=== PATIENT | female | born 1945 | race Caucasian/White ===

== ENCOUNTER 2017-03-10 07:20 | Inpatient (IN) | payer BC, MEDICARE ==
--- NOTE | 2017-03-02 23:27 | HP ---
HOSPITAL COURSE: DATE OF ADMISSION/SURGERY: 03/10/17 SURGEON: Kate Kemp MD * (DICTATED BY WILY LOGAN) PROCEDURE: Left total knee arthroplasty. CHIEF COMPLAINT: Left knee pain. HISTORY OF PRESENT ILLNESS: Ms. Tatum is a 71-year-old female with complaints of left knee pain secondary to advanced osteoarthritis. She has failed conservative management and has elected to proceed with a left total knee arthroplasty, which is scheduled for 03/10/[address] Kemp. PAST MEDICAL HISTORY: 1. Hypertension. 2. High cholesterol. 3. Varicose veins. 4. History of thrombophlebitis. 5. Anxiety. 6. Liver cancer. 7. Thoracic aneurysm. PAST SURGICAL HISTORY: 1. Tonsillectomy. 2. Adenoidectomy. 3. Cholecystectomy. 4. Tubal ligation. 5. Vein ligation. 6. [place] teeth extraction. 7. Appendectomy. CURRENT MEDICATIONS: 1. Celebrex. 2. Bystolic 5 mg once a day. 3. Valsartan/hydrochlorothiazide 320/12.5 once a day. 4. Simvastatin 20 mg once a day. 5. Alprazolam 0.25 mg twice a day as needed. 6. Coumadin 2 mg 2 tablets once daily. 7. Osteo Bi-Flex. ALLERGIES: None. FAMILY HISTORY: Heart disease and hypertension. SOCIAL HISTORY: A 71-year-old female, she lives with her niece. She does not smoke, use drugs or alcohol. REVIEW OF SYSTEMS: A complete 14-point review of systems was reviewed with the patient. 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 PHYSICAL EXAMINATION GENERAL: She is well developed, well nourished, in no acute distress. VITAL SIGNS: She stands 5 feet 4 inches tall, weighs 193 pounds. Her blood pressure is 140/92, heart rate 74. HEENT: Normocephalic, atraumatic. NECK: Supple. No palpable lymph nodes. PULMONARY: Lungs are clear to auscultation bilaterally. CARDIO: Regular rate and rhythm. Strong S1, S2. ABDOMEN: Soft, nontender, nondistended. NEUROLOGICAL: She is alert and oriented x3. Cranial nerves II through XII are intact. MUSCULOSKELETAL: Left lower extremity, the skin is intact. There are no open wounds or abrasions. She has a moderate joint effusion, 15 to 110 degrees flexion, tenderness over the medial joint line and MCL. Negative Marisa. 5/5 lower extremity strength. 2+ dorsalis pedis pulses and intact sensation. ASSESSMENT AND PLAN: Ms. Tatum is a 71-year-old female with complaints of left knee pain secondary to advanced osteoarthritis. She has failed conservative management and has elected to proceed with a left total knee arthroplasty, which is scheduled for 03/10/[address] Kemp discussed the risks and benefits of the surgery at today's visit and all of her questions were answered. Percocet and Colace were sent to her pharmacy today for postoperative pain control and she has a prescription for Coumadin currently. She will follow with Dr. Kemp 2 weeks after the surgery. WILY LOGAN [id number]/[facility] #: [id number] MTDD
[~2017-03-10 07:20] MED LIST: Buffered Lidocaine 0.9% SYRIN* 5 ML/SYR SYRINGE INTRADERM ONE; Famotidine IV* 10 MG/ML 2 ML (20 mg) IV ONE; Gabapentin CAP(*) 300 MG PO ONE
[2017-03-10] MEDS ORDERED: fentaNYL* 50 MCG/ML 2 ML VIAL (100 MCG VIAL) ONE (08:28)
[2017-03-10] MEDS ORDERED: Midazolam* 1 MG/ML 5 ML VIAL (5 MG) ONE (08:28)
[2017-03-10] MEDS ORDERED: Buffered Lidocaine 0.9% SYRIN* 5 ML/SYR SYRINGE ONE (08:45)
[2017-03-10] MEDS ORDERED: Gabapentin CAP(*) 300 MG ONE (09:15)
[2017-03-10] MEDS ORDERED: Famotidine IV* 10 MG/ML 2 ML (20 mg) ONE (09:15)
[2017-03-10] MEDS ORDERED: Bupivacaine 0.5% W/EPI SDV* 10 ML VIAL INJ ONE (09:45)
[2017-03-10] MEDS ORDERED: Morphine PF AMP (0.5MG/ML)* 5 MG/10 ML AMP ONE (09:57)
[2017-03-10] MEDS ORDERED: KETAMINE HCL* 50 MG/ML 10 ML VIAL ONE (10:23)
[2017-03-10] MEDS ORDERED: Ketorolac INJ* 30 MG/ML 1 ML VIAL ONE (10:36)
[2017-03-10] MEDS ORDERED: Propofol* 10 MG/ML 20 ML BTL IV PUSH ONE (10:36)
[2017-03-10] MEDS ORDERED: DiMENhydriNATE IV* 50 MG/ML VIAL ONE (10:36)
[2017-03-10] MEDS ORDERED: Ondansetron INJ* 2 MG/ML VIAL ONE (10:36)
[2017-03-10] MEDS ORDERED: oxyCODONE TAB* 5 MG TAB PO PRN (11:32)
[2017-03-10] MEDS ORDERED: HYDROmorphone* 1 MG/ML 1 ML SYR IV PRN ×2 (11:32→16:42)
[2017-03-10] MEDS ORDERED: Acetaminophen TAB* 325 MG PO PRN (11:32)
[2017-03-10] MEDS ORDERED: DiMENhydriNATE IV* 50 MG/ML VIAL IV PUSH PRN (11:32)
[2017-03-10] MEDS ORDERED: Gabapentin CAP(*) 100 MG PO ONE ×2 (11:33→18:00)
[2017-03-10] MEDS ORDERED: Ondansetron INJ* 2 MG/ML VIAL IV PRN (11:34)
[2017-03-10] MEDS ORDERED: Naloxone* 0.4 MG/ML 1 ML VIAL IV PRN (11:34)
[2017-03-10] MEDS ORDERED: Nalbuphine* 20 MG/ML 1 ML VIAL IV PRN (11:34)
[2017-03-10] MEDS ORDERED: Phenylephrine IV* 40 MCG/ML 10 ML SYRINGE ONE (12:31)
[2017-03-10] MEDS ORDERED: Gabapentin CAP(*) 100 MG ONE (12:35)
[2017-03-10] MEDS ORDERED: diPHENhydraMINE PO* 25 MG PO PRN (13:07)
[2017-03-10] MEDS ORDERED: diPHENhydraMINE IV* 50 MG/ML 1 ml VIAL (BENADRYL) IV PRN (13:07)
[2017-03-10] MEDS ORDERED: Bisacodyl SUPP* 10 MG SUPP PR PRN (13:07)
[2017-03-10] MEDS ORDERED: Polyethylene Glycol 3350* 17 GM PACKET PO PRN (13:07)
--- NOTE | 2017-03-10 13:55 | RAD ---
Indication: Immediate postop exam following LEFT total knee replacement. Comparison: February 11, 2017 Technique: Portable AP and cross table lateral views LEFT knee. Report: Status post total knee replacement. Anterior surgical drain in place. Post-op fluid and gas is seen in the joint space and anterior subcutaneous tissues. Alignment is anatomic. No periprosthetic fracture evident. IMPRESSION: Unremarkable immediate postoperative appearance following LEFT knee replacement.
[2017-03-10] MEDS ORDERED: oxyCODONE/Acetamin 5/325 MG* TAB ONE (15:15)
[2017-03-10] MEDS: oxyCODONE/Acetamin 5/325 MG* TAB PO PRN (15:17)
[2017-03-10] MEDS: Ibuprofen TAB* 600 MG PO SCH ×2 (16:21→22:32)
[2017-03-10] MEDS ORDERED: HYDROmorphone* 1 MG/ML 1 ML SYR IV SLOW PU ONE (16:41)
[2017-03-10] MEDS: HYDROmorphone* 1 MG/ML 1 ML SYR ONE ×2 (16:44→17:26)
[2017-03-10] MEDS ORDERED: HYDROmorphone* 1 MG/ML 1 ML SYR IV ONE (17:00)
[2017-03-10] MEDS ORDERED: Warfarin TAB(*) 6 MG PO ONE (17:00)
[2017-03-10] MEDS ORDERED: ALPRAZolam TAB* 0.5 MG PO SCH (18:00)
[2017-03-10] MEDS: ceFAZolin 1 GM ADVAN(*) 1 GM in NS 0.9% 50 ML* 50 ML IVPB SCH (18:01)
[2017-03-10] MEDS: Magnesium Hydroxide LIQ* 30 ML UDC PO SCH ×2 (22:32→22:36)
[2017-03-10] MEDS: Docusate CAP* 100 MG PO SCH (22:32)
[2017-03-10] MEDS: Nystatin TOP POWDER* 15 GM BTL TOPICAL SCH (22:33)
--- NOTE | 2017-03-10 22:43 | CONS ---
CC: Dr. Kate Kemp; Dr. Britany Pavon * CONSULTATION REPORT: DATE OF CONSULT: 03/10/17 ATTENDING PHYSICIAN WHILE IN THE HOSPITAL: Dr. Rosa Vega (report dictated by Vinh Rodas NP). REQUESTING PHYSICIAN FOR CONSULT: Dr. Kate Kemp. PRIMARY CARE PROVIDER: Dr. Britany Pavon. REASON FOR MEDICAL CONSULTATION: Evaluation and medical management of comorbidities medical conditions. HISTORY OF PRESENT ILLNESS: I refer you to Dr. Kemp's H and P for further details. In short, Ms. Tatum is a 71-year-old female patient who has had left knee pain for sometime, failing conservative therapy. She sought care with Dr. Kemp, and the patient felt that she would benefit from a total knee replacement which she underwent today. She did undergo perioperative risk stratification with her primary and with her mud worker/oncologist. The patient does carry a history of hypertension, hyperlipidemia, history of DVT, anxiety, thoracic aneurysm, which was 4 cm last measured and follows this yearly , history of carcinoid tumor and a history of peptic ulcer disease, and hiatal hernia. She was evaluated in the PACU. She states she is feeling well. She denies having any chest pain or shortness of breath. Denies any abdominal pain. She states that her pain is well controlled in her knee. She states that she just feels drowsy. She denies feeling nauseated and says she does not feel hungry at this point, but she states otherwise she is feeling well. Because of her medical complexity, the hospitalist service was asked to evaluate in consult. PAST MEDICAL HISTORY: Significant for: 1. Hypertension. 2. Hyperlipidemia. 3. DVT. 4. Anxiety. 5. Thoracic aneurysm. 6. Carcinoid tumor. 7. GERD. 8. Hiatal hernia. PAST SURGICAL HISTORY: 1. She just done today a left total knee arthroplasty. 2. Tonsillectomy. 3. Cholecystectomy. 4. Tubal ligation. 5. Vein ligation. 6. Appendectomy. HOME MEDICATIONS: According to the preop list include: 1. Celebrex 200 mg daily. 2. Warfarin 4 mg at bedtime. 3. Warfarin 6 mg at bedtime. She takes 6 mg on Mondays and Fridays, 4 mg rest of the week. 4. Diovan/hydrochlorothiazide 1 tablet daily. 5. Bystolic 5 mg daily. 6. Multivitamin 1 tablet daily. 7. Osteo Bi-Flex 1 tablet p.o. daily. 8. Xanax 0.5 mg p.o. every 6 hours. 9. Tylenol Extra Strength 1000 mg p.o. daily. ALLERGIES TO MEDICATIONS: Include no known drug allergies. FAMILY HISTORY: Mother had a history of heart disease. Father had a history of CVA. SOCIAL HISTORY: The patient is a nonsmoker. She rarely drinks alcohol. Surrogate decision maker is her niece, Jenn . REVIEW OF SYSTEMS: There is no documented fever. She denied having any significant weight change. There was no double vision. She denies having any ear discharge. No rhinorrhea. No sore throat. No thyroid enlargement. She denies having any chest pain. No shortness of breath. No abdominal pain. No nausea. No vomiting. No dysuria. No frequency. No seizure. No loss of consciousness. No pruritus and no skin ulcerations. Review of 14 systems completed, all others negative. PHYSICAL EXAMINATION: Blood pressure 108/69, pulse of 57, respirations 12, O2 sat 95%, temperature 97.2. General: At this time, Ms. Tatum is a 71-year-old female patient, she is sitting in the PACU bed. She does not appear to be in any acute distress. HEENT: Head atraumatic. Eyes: Sclerae were anicteric. Neck: Supple. Throat: Oral mucosa appears to be moist. No oropharyngeal erythema. Heart: Sounds S1, S2. Regular rate and rhythm. No murmurs, rubs or gallops. Lungs: Clear to auscultation. No wheezes, rales or rhonchi. Abdomen : Soft, flat, nontender. Bowel sounds hypoactive. Extremities: Pulses 2+ throughout. She is able to move her upper extremity with 5/5 strength, the lower extremity distal CSM checks are intact to the left lower extremity. Neurologically, she is drowsy, but she wakens to her name and she is alert and oriented x3. Speech clear. Tongue midline. She had no gross focal deficit. Her skin is intact with the exception to the left knee. She has an Percy dressing and Hemovac, which is clean, dry and intact. LABORATORY DATA: Preop revealed WBC of 4, RBC of 4.41, hemoglobin 13.1, hematocrit of 41, platelet count 136. INR was 0.94. Sodium was 142, potassium of 3.8, chloride of 107, bicarb 29, BUN 14, creatinine 0.73, glucose is 81. Urine showed leukocyte esterase only, trace ketones, present squamous epithelial cells. Urine microbiology was negative. She did have a preop EKG, which showed a normal sinus rhythm at a rate of 67, no ST elevations or T-wave inversions. She did have a preop chest x-ray with impression, no evidence for acute intrathoracic disease, large hiatal hernia with associated left basilar compressive atelectasis. Old medical records reviewed. ASSESSMENT AND PLAN: Ms. Tatum is a 71-year-old female patient coming into the orthopedic service today for an elective total knee. We were asked to evaluate in consult for recommendations of comorbid medical management. Recommendations at this point: 1. Status post left total knee replacement. I will defer the management to Dr. Kemp and her team. 2. Hypertension. Blood pressure postoperatively is in the low 100s, so at this point, I am just going to continue the beta-deshawn. We will hold off on her valsartan and hydrochlorothiazide and we can start this perhaps in 24 hours. We will just monitor her blood pressure and restart when able. 3. Hyperlipidemia, continue her current medical regimen. 4. History of deep venous thrombosis. I will start Coumadin as soon as possible. She does not need to be bridged and this was recommended from her primary and we will start her back on her Coumadin at her home dose and can be followed by Orthopedics or her primary. 5. Anxiety. Continue with p.r.n. Xanax. 6. History of thoracic aneurysm, it is stable at this point. We will monitor for any chest pain, and again try to keep her blood pressure controlled, lower side, but when able we will reset the blood pressures appropriately. 7. History of carcinoid tumor, follow with her primary oncologist. 8. Gastroesophageal reflux disease. Continue meds as prescribed. 9. DVT prophylaxis. We will defer to primary team, but she is high risk and states she is on Lovenox. 10. Fluids, electrolytes and nutrition: I would recommend a regular diet. 11. Code status: Full code. TIME SPENT: Time spent on the consult 60 minutes, greater than half the time was spent [id number] with the patient today obtaining my history and physical , the other half time spent going over the plan of care with the patient and implementing plan of care. I did discuss the plan of care with my attending, Dr. Vega, who is in agreement. VINH RODAS, ANTIONETTE [id number]/[facility] #: [id number] CARLITA
[2017-03-11] MEDS: oxyCODONE/Acetamin 5/325 MG* TAB PO PRN ×5 (00:25→20:17)
[2017-03-11] MEDS ORDERED: oxyCODONE/Acetamin 5/325 MG* TAB PO PRN (02:14)
[2017-03-11] MEDS ORDERED: Morphine INJ* 10 MG/ML 1 ML SYRINGE IV PRN (02:14)
[2017-03-11] MEDS ORDERED: oxyCODONE TAB* 5 MG TAB PO PRN (02:14)
[2017-03-11] MEDS: ceFAZolin 1 GM ADVAN(*) 1 GM in NS 0.9% 50 ML* 50 ML IVPB SCH ×2 (02:51→10:25)
[2017-03-11] MEDS ORDERED: Ondansetron TAB* 4 MG PO PRN (03:35)
[2017-03-11] MEDS ORDERED: Ondansetron INJ* 2 MG/ML VIAL IV PRN (03:35)
[2017-03-11] MEDS: Ibuprofen TAB* 600 MG PO SCH ×2 (04:03→09:40)
[2017-03-11] MEDS: NS 0.9% 1000 ML* 500 ML IV SCH ×2 (04:10→04:17)
[2017-03-11] MEDS ORDERED: NS 0.9% 1000 ML* 1,000 ML IV ONE (05:40)
[2017-03-11 07:28] LABS: BUN/Creatinine Ratio 15.3 (8-20); Blood Urea Nitrogen 18 mg/dL (6-24); CO2 Carbon Dioxide 21 mmol/L (22-32); Calcium 7.7 mg/dL (8.6-10.3); Chloride 107 mmol/L (101-111); EGFR African American 57.7 (>60); EGFR Non-African American 44.9 (>60); Glucose 113 mg/dL (70-100); Sodium 135 mmol/L (133-145)
[2017-03-11 07:48] LABS: Anion Gap 7 mmol/L (2-11)
[2017-03-11] MEDS: ALPRAZolam TAB* 0.5 MG PO PRN ×3 (07:51→20:06)
--- NOTE | 2017-03-11 08:00 | PN ---
Progress Note - Progress Note Date of Service: 03/11/17 SOAP: Subjective: Pt. reports pain is controlled. She is depressed/anxious and crying this AM. Nursing reports bolus IVF overnight for hypotension. Objective: LLE - drain removed, tip intact, 300 cc ss drainage. distally nvi with +df/pf, full sens lt, 2+ dp pulse. Vital Signs: Temp Pulse Resp BP Pulse Ox 97.6 F 88 20 84/59 100 03/10/17 23:56 03/11/17 05:31 03/11/17 07:51 03/11/17 05:31 03/11/17 03:20 Laboratory Results - last 24 hr 03/10/17 03/11/17 03/11/17 08:53 05:20 05:24 INR (Anticoag Therapy) 0.94 1.02 Sodium 135 Potassium TNP Chloride 107 Carbon Dioxide 21 L Anion Gap 7 BUN 18 Creatinine 1.18 H Est GFR ( Amer) 57.7 Est GFR (Non-Af Amer) 44.9 BUN/Creatinine Ratio 15.3 Glucose 113 H Calcium 7.7 L Assessment: 71 yo F pod 1 s/p LTKA Plan: will recheck BP need stat h ct wbat pt/ot xanax available prn
[2017-03-11 08:50] LABS: Hematocrit 31 % (35-47); Hemoglobin 10.1 g/dl (12.0-16.0); Mean Corpuscular HGB Conc 33 g/dl (31-36); Mean Corpuscular Hemoglobin 31 pg (27-31); Mean Corpuscular Volume 94 fL (80-97); Red Blood Count 3.32 10^6/ul (4.0-5.4); Red Cell Distribution Width 15 % (10.5-15); White Blood Count 5.3 10^3/ul (3.5-10.8)
--- NOTE | 2017-03-11 08:52 | PN ---
Subjective Date of Service: 03/11/17 Interval History: Patient seen and examined at bedside. Pt states that she is feeling this ok this AM, but is feeling "depressed". She reports "just crying" this morning and is very anxious about physical therapy. Denies fever, chills, lightheadedness or dizziness, shortness of breath, chest discomfort, N/V/D. Family History: Unchanged from Admission Social History: Unchanged from Admission Past Medical History: Unchanged from Admission Objective Active Medications: Acetaminophen (Tylenol Tab*) 650 mg PO Q4H PRN Reason: mild pain or fever Alprazolam (Xanax Tab*) 0.5 mg PO Q6HR PRN Reason: ANXIETY Bisacodyl (Dulcolax Supp*) 10 mg VT DAILY PRN Reason: constipation Diphenhydramine HCl (Benadryl Iv*) 12.5 mg IV Q6H PRN Reason: PRURITIS Diphenhydramine HCl (Benadryl Po*) 25 mg PO Q6H PRN Reason: INSOMNIA Docusate Sodium (Colace Cap*) 100 mg PO BID EMELY Enoxaparin Sodium (Lovenox(*)) 30 mg SUBCUT Q24H EMELY Cefazolin Sodium 1 gm/ Sodium (Chloride) 50 mls @ 200 mls/hr IVPB Q8H EMLEY Lactated Ringer's (Lactated Ringers 1000 Ml Bag*) 1,000 mls @ 100 mls/hr IV PER RATE EMELY Ibuprofen (Motrin Tab*) 600 mg PO Q6H EMELY Stop: 03/11/17 10:00 Lactulose (Lactulose*) 30 ml PO Q6H PRN Reason: constipation Magnesium Hydroxide (Milk Of Magnesia Liq*) 30 ml PO BID EMELY Morphine Sulfate (Morphine Inj (Syringe)*) 5 mg IV Q2H PRN Reason: PAIN Multivitamins ( Vitamin Tab*) 1 tab PO DAILY EMELY Nebivolol (Bystolic Tab (Nf)) 5 mg PO DAILY EMELY Nystatin (Nystatin Top Powder*) 1 applic TOPICAL BID EMELY Ondansetron HCl (Zofran Inj*) 4 mg IV Q6H PRN Reason: nausea Ondansetron HCl (Zofran Tab*) 4 mg PO Q6H PRN Reason: NAUSEA Oxycodone HCl (Roxycodone Tab*) 10 mg PO Q4H PRN Reason: breakthru pain Oxycodone/Acetaminophen (Percocet 5/325 Tab*) 1 tab PO Q3H PRN Reason: PAIN - MODERATE Oxycodone/Acetaminophen (Percocet 5/325 Tab*) 2 tab PO Q3H PRN Reason: PAIN - MODERATE Polyethylene Glycol/Electrolytes (Miralax*) 17 gm PO DAILY PRN Reason: Constipation Warfarin Sodium (Coumadin Tab(*)) 8 mg PO ONCE@1700 ONE Stop: 03/11/17 17:01 Vital Signs 03/10/17 03/10/17 03/10/17 08:57 13:07 13:10 Temperature 97.9 F 97.2 F Pulse Rate 64 65 65 Respiratory 18 14 12 Rate Blood Pressure 172/88 109/66 104/68 (mmHg) O2 Sat by Pulse 100 98 97 Oximetry 03/10/17 03/10/17 03/10/17 13:15 13:30 13:45 Temperature Pulse Rate 62 57 57 Respiratory 12 11 11 Rate Blood Pressure 103/62 106/60 108/69 (mmHg) O2 Sat by Pulse 96 97 95 Oximetry 03/10/17 03/10/17 03/10/17 14:00 14:15 14:30 Temperature Pulse Rate 55 54 54 Respiratory 10 14 14 Rate Blood Pressure 103/64 102/65 110/66 (mmHg) O2 Sat by Pulse 95 97 100 Oximetry 03/10/17 03/10/17 03/10/17 14:45 15:07 15:17 Temperature 97.2 F 96.4 F Pulse Rate 52 52 Respiratory 12 13 13 Rate Blood Pressure 101/67 109/64 (mmHg) O2 Sat by Pulse 100 100 Oximetry 03/10/17 03/10/17 03/10/17 15:23 15:56 16:00 Temperature 97.3 F Pulse Rate 71 Respiratory 18 14 Rate Blood Pressure 109/63 (mmHg) O2 Sat by Pulse 100 100 Oximetry 03/10/17 03/10/17 03/10/17 16:34 16:45 16:52 Temperature Pulse Rate Respiratory 14 18 Rate Blood Pressure (mmHg) O2 Sat by Pulse 94 Oximetry 03/10/17 03/10/17 03/10/17 17:12 17:14 17:45 Temperature 97.6 F Pulse Rate 112 Respiratory 15 16 10 Rate Blood Pressure 106/64 (mmHg) O2 Sat by Pulse 92 Oximetry 03/10/17 03/10/17 03/10/17 18:43 19:34 20:01 Temperature 97.9 F Pulse Rate 55 Respiratory 13 13 12 Rate Blood Pressure 92/65 (mmHg) O2 Sat by Pulse 100 Oximetry 03/10/17 03/10/17 03/10/17 20:45 21:34 22:34 Temperature 98.0 F Pulse Rate 51 Respiratory 11 12 16 Rate Blood Pressure 95/59 (mmHg) O2 Sat by Pulse 100 Oximetry 03/10/17 03/11/17 03/11/17 23:56 00:25 02:25 Temperature 97.6 F Pulse Rate 53 Respiratory 16 20 14 Rate Blood Pressure 101/54 (mmHg) O2 Sat by Pulse 100 Oximetry 03/11/17 03/11/17 03/11/17 03:20 04:20 05:31 Temperature Pulse Rate 50 88 Respiratory 14 Rate Blood Pressure 80/46 90/46 84/59 (mmHg) O2 Sat by Pulse 100 Oximetry 03/11/17 03/11/17 03/11/17 06:40 06:41 07:21 Temperature 97.5 F Pulse Rate 59 59 Respiratory 16 12 Rate Blood Pressure 85/47 95/42 (mmHg) O2 Sat by Pulse 100 Oximetry 03/11/17 03/11/17 03/11/17 07:51 08:00 08:31 Temperature Pulse Rate Respiratory 20 20 Rate Blood Pressure (mmHg) O2 Sat by Pulse 95 95 Oximetry Oxygen Devices in Use Now: Nasal Cannula - 2L Appearance: NAD, sitting up in a chair Eyes: No Scleral Icterus Ears/Nose/Mouth/Throat: Mucous Membranes Moist Respiratory: Symmetrical Chest Expansion and Respiratory Effort, Clear to Auscultation Cardiovascular: NL Sounds; No Murmurs; No JVD, RRR Abdominal: NL Sounds; No Tenderness; No Distention Extremities: No Edema Skin: - - Dressing to left knee clean, dry and intact Neurological: Alert and Oriented x 3, NL Muscle Strength and Tone Lines/Tubes/Other Access: Clean, Dry and Intact Peripheral IV - site benign Nutrition: Taking PO's Result Diagrams: 03/11/17 08:35 03/11/17 08:35 Assess/Plan/Problems-Billing Assessment: Ms. Tatum is a 71 yo female with PMH significant for HTN, HLD, anxiety, GERD and hx DVT who presented to the hospital for an elective left total knee replacement with Dr. Kemp on 03/10/2017. - Patient Problems (1) Status post total left knee replacement Code(s): Z96.652 - PRESENCE OF LEFT ARTIFICIAL KNEE JOINT SNOMED Code(s): 3297460404958 Comment: - POD #1, management per Ortho - Trend HH, HH pending for today - Continue PT/OT, pain managment and bowel regimen (2) HTN (hypertension) Code(s): I10 - ESSENTIAL (PRIMARY) HYPERTENSION SNOMED Code(s): 75035529 Comment: - BP soft with SBP 80-100's, improved after bolus - Received IVF boluses overnight - Continue to hold Valsartan and HCTZ - Continue Bystolic with hold parameters (3) HLD (hyperlipidemia) Code(s): E78.5 - HYPERLIPIDEMIA, UNSPECIFIED SNOMED Code(s): 34315133 Comment: - Not currently on medication (4) History of DVT (deep vein thrombosis) Code(s): Z86.718 - PERSONAL HISTORY OF OTHER VENOUS THROMBOSIS AND EMBOLISM SNOMED Code(s): 108534834 Comment: - INR subtherapeutic - Bridge Lovenox to Warfarin per Orthopedics (5) Anxiety Code(s): F41.9 - ANXIETY DISORDER, UNSPECIFIED SNOMED Code(s): 87418348 Comment: - Continue PRN Xanax (6) Thoracic aortic aneurysm Code(s): I71.2 - THORACIC AORTIC ANEURYSM, WITHOUT RUPTURE SNOMED Code(s): 052469408 Comment: - Monitor for chest pain and maintain normotensive BP (7) GERD (gastroesophageal reflux disease) Code(s): K21.9 - GASTRO-ESOPHAGEAL REFLUX DISEASE WITHOUT ESOPHAGITIS SNOMED Code(s): 199056893 Comment: - Not currently on medication (8) DVT prophylaxis Code(s): VUJ0169 - SNOMED Code(s): 320341388 Comment: - Lovenox bridge to warfarin per Orthopedics (9) Full code status Code(s): Z78.9 - OTHER SPECIFIED HEALTH STATUS SNOMED Code(s): 714289710 Status and Disposition: Inpatient. Disposition per Orthopedics. Thank you for this consultation, we will continue to follow.
[2017-03-11 08:57] LABS: Comments Flag Yes
[2017-03-11 08:58] LABS: Add Diff/Slide Review? Slide Review Added
[2017-03-11] MEDS ORDERED: Valsartan/HCTZ 320/12.5(NF) TAB PO SCH (09:00)
[2017-03-11] MEDS ORDERED: Nebivolol TAB (NF) 5 MG TAB PO SCH (09:00)
[2017-03-11] MEDS: CMCS:Nebivolol TAB (NF) 2.5 MG TAB PO SCH (09:12)
[2017-03-11 09:16] LABS: Mean Platelet Volume 9 um3 (7.4-10.4)
[2017-03-11] MEDS: Nystatin TOP POWDER* 15 GM BTL TOPICAL SCH ×2 (09:32→20:06)
[2017-03-11] MEDS: Prenatal Vitamin TAB PO SCH (09:33)
[2017-03-11] MEDS: Magnesium Hydroxide LIQ* 30 ML UDC PO SCH ×2 (09:34→20:05)
[2017-03-11] MEDS: Docusate CAP* 100 MG PO SCH ×2 (09:34→20:05)
[2017-03-11] MEDS ORDERED: Enoxaparin(*) 30 MG/0.3 ML SYR SUBCUT SCH (14:00)
--- NOTE | 2017-03-11 16:38 | OP ---
DATE OF OPERATION: 03/10/17 - ROOM #342 DATE OF : 41 SURGEON: Kate Kemp MD CLIENT PORTFOLIO MANAGER: WILY Smith. Zhao did help throughout the procedure with preparation of leg, wound retraction, manipulation of the knee and wound closure. ANESTHESIOLOGIST: Dr. Calhoun. ANESTHESIA: Spinal. PRE-OP DIAGNOSIS: Severe end-stage degenerative osteoarthritis of the left knee joint. POST-OP DIAGNOSIS: Severe end-stage degenerative osteoarthritis of the left knee joint. OPERATIVE PROCEDURE: Left total knee arthroplasty. COMPLICATIONS: None. SPECIMEN: Bone and cartilage from the left knee joint sent to pathology. TOURNIQUET TIME: 55 minutes. ESTIMATED BLOOD LOSS: 250 cc. HARDWARE USED: This is cemented [employer] total knee arthroplasty hardware. Two packages of Simplex bone cement were used. For the femur, a size 4 left, posterior stabilized femoral component. For the tibia, a size 3 left, tibial base plate. For the patella, a 29-mm, 7.5 thickness, 3-peg, all poly patella and for the insert, a 13-mm constrained articular insert size 3-4. PREOPERATIVE HISTORY/INDICATION: Ms. Tatum is a 71-year-old female with years of increasingly severe left knee pain. She failed conservative treatment with anti- inflammatories, physical therapy, and intra-articular injections. She began using the cane and rolling walker at all times. Radiographs showed bone- on-bone arthritis in the knee joint. Patient elected to undergo left total knee arthroplasty due to continued pain and decreased quality of life. Informed consent was obtained. She understood the risks of procedure included, but were not limited to bleeding, infection, damage to nearby structures, continued pain, need for further surgery, intraoperative fracture, nerve palsy, hardware failure or loosening, knee stiffness, loss of motion, stroke, heart attack, blood clot, and . She wished to proceed. INTRAOPERATIVE FINDINGS: Intraoperatively, the patient was noted to have severe end-stage arthritis. She had full thickness loss of cartilage in a tricompartmental fashion, advanced loss of cartilage along the patella and medial femoral condyle. Patient had a 10-degree flexion contracture to start the case. Under anesthesia, she was also noted to have significant MCL laxity. DESCRIPTION OF PROCEDURE: Ms. Tatum was identified in the preanesthesia unit. Her left lower extremity was marked as the correct operative side. Informed consent was signed and placed in the chart. Patient was taken to the operating room and placed under spinal anesthesia. A Villa catheter was placed. Tourniquet was placed on the left thigh. Left lower extremity was prepped and draped in the usual sterile fashion. Preop time-out was made to correctly identify the patient side and site. Appropriate perioperative antibiotics were given within 1 hour of incision. Tourniquet was inflated and total tourniquet time for this procedure was 55 minutes. A midline incision was made with a 10-blade and carried down to the extensor mechanism. A new 10-blade was used to make a standard medial parapatellar arthrotomy. The patellar was subluxed laterally. Electrocautery was used to subperiosteally elevate soft tissue off the superomedial tibia to the mid sagittal plane. The knee was flexed up. Anterior horn of the lateral meniscus and ACL were sharply released. A drill was used to enter the distal femur. Intramedullary distal femoral cutting guide was placed and pinned into proper position. 9 mm of distal femoral bone was carefully removed. Next, the external rotation guide was pinned down the distal femur. Femur was sized to a size 4. Size 4 multi-cutting jig was pinned on the distal femur. The oscillating saw was used to make the appropriate 4 chamfer cuts. Any bony fragments were carefully removed. Next, the PCL was completely released. Extramedullary tibial cutting guide was pinned on the proximal tibia. Oscillating saw was used to make the proximal tibial cut perpendicular to the mechanical axis of the tibia. Tibial bone was carefully removed. The knee was brought out into full extension. The spacer block had good fit with full extension. There was good medial and lateral ligamentous balancing. Good flexion and extension gap balancing. The knee was flexed up. Lamina process designer was placed both medially and laterally. Any remaining meniscus was carefully removed using electrocautery. Posterior osteophytes were removed using a curved osteotome. Next, the tibial tray and drop karli were placed to confirm satisfactory proximal tibial cut. This was confirmed. A size 4 left femoral component trial was impacted on to the distal femur. This had excellent fit. The box for the posterior stabilized implant was prepared using a reamer and box cut osteotome. A size 3 tibial tray trial and an 11-mm insert trial was placed. The knee was taken through range of motion. The knee had full extension to 120 degrees of flexion. Flexion was limited only by body habitus. The patella was everted. 7 mm of patellar bone and cartilage were carefully removed from the patella. Patella was sized to a size 29. Three drill holes were drilled through the size 29 guide. A 7.5 thickness size 29 trial patella was placed. The knee was taken through range of motion. There was good patellofemoral tracking. All trials were carefully removed. The tibia was subluxed anteriorly and sized to a size 3. Proximal tibia was prepared using a size 3 keel punch. All bony cut surfaces were copiously irrigated with sterile saline and dried. The final implants were cemented into place starting with the tibia followed by the femur and last the patella. A 13-mm insert trial was placed while the knee was brought out into full extension. Tourniquet was turned down at 55 minutes. The cement was allowed to fully cure. Once the cement had fully cured, the insert trial was removed. Electrocautery was used to obtain meticulous hemostasis. The knee was copiously irrigated with sterile saline. Any excess cement was carefully removed from around the implant and capsule. Final insert chosen was a 13-mm constrained articular insert. This was locked into position on the tibial tray. The stability of the insert was checked and rechecked and noted to be stable. Final range of motion was full extension to 120 degrees of flexion. Good patellofemoral tracking. The extensor mechanism was closed over a medium Hemovac drain using interrupted #1 Vicryls. The rest of the incision was closed in a layered fashion using 0 and 2-0 Vicryls. Skin was closed using running 3-0 nylon suture. Sterile Xeroform, 4x4s, and Webril were used to cover the incision. Percy wrap and cold pack were placed over this. The patient' s anesthesia was reversed without difficulty. She was taken to the PACU in stable condition. Intended weightbearing will be weightbearing as tolerated. Intended DVT prophylaxis will be Coumadin with Lovenox bridge. [id number]/[facility] #: [id number] CARLITA
[2017-03-11] MEDS ORDERED: Warfarin TAB(*) 4 MG PO ONE (17:00)
[2017-03-12] MEDS: oxyCODONE/Acetamin 5/325 MG* TAB PO PRN ×3 (05:00→21:26)
--- NOTE | 2017-03-12 07:58 | PN ---
Progress Note - Progress Note Date of Service: 03/12/17 SOAP: Subjective: Pt. is alert, c/o moderate pain. Depressed mood. Objective: LLE - dressing changed, inc c/d/i with m in ss drainage, distally nvi. Vital Signs: Temp Pulse Resp BP Pulse Ox 98.7 F 91 23 151/79 99 03/12/17 07:27 03/12/17 07:27 03/12/17 07:27 03/12/17 07:27 03/12/17 07:27 Laboratory Results - last 24 hr 03/11/17 03/11/17 08:35 08:35 WBC 5.3 RBC 3.32 L Hgb 10.1 L Hct 31 L MCV 94 MCH 31 MCHC 33 RDW 15 Plt Count 92 L MPV 9 Neut % (Auto) 76.2 Lymph % (Auto) 11.6 L [place] % (Auto) 9.2 H Eos % (Auto) 2.3 Baso % (Auto) 0.7 Absolute Neuts (auto) 4.0 Absolute Lymphs (auto) 0.6 L Absolute Monos (auto) 0.5 Absolute Eos (auto) 0.1 Absolute Basos (auto) 0 Absolute Nucleated RBC 0 Nucleated RBC % 0 Hem Pathologist Commnt Potassium 3.8 Assessment: 71 yo F pod 2 s/p LTKA Plan: pt/ot coumadin tonight plan d/c to snf tomorrow
[2017-03-12] MEDS: Nystatin TOP POWDER* 15 GM BTL TOPICAL SCH ×2 (08:26→21:15)
[2017-03-12] MEDS: Prenatal Vitamin TAB PO SCH (08:27)
[2017-03-12] MEDS: Docusate CAP* 100 MG PO SCH ×2 (08:27→21:15)
[2017-03-12] MEDS: CMCS:Nebivolol TAB (NF) 2.5 MG TAB PO SCH (08:27)
[2017-03-12] MEDS: Magnesium Hydroxide LIQ* 30 ML UDC PO SCH ×2 (08:29→21:15)
[2017-03-12 08:46] LABS: Hematocrit 29 % (35-47); Hemoglobin 9.3 g/dl (12.0-16.0); Mean Corpuscular HGB Conc 32 g/dl (31-36); Mean Corpuscular Hemoglobin 30 pg (27-31); Mean Corpuscular Volume 92 fL (80-97); Mean Platelet Volume 9 um3 (7.4-10.4); Red Blood Count 3.13 10^6/ul (4.0-5.4); Red Cell Distribution Width 15 % (10.5-15); White Blood Count 5.6 10^3/ul (3.5-10.8)
[2017-03-12 08:48] LABS: Comments Flag Yes
--- NOTE | 2017-03-12 11:46 | PN ---
Subjective Date of Service: 03/12/17 Interval History: Patient seen and examined at bedside. Pt states that she is feeling better today. Denies fever, chills, shortness of breath, chest discomfort, N/V/D. Family History: Unchanged from Admission Social History: Unchanged from Admission Past Medical History: Unchanged from Admission Objective Active Medications: Acetaminophen (Tylenol Tab*) 650 mg PO Q4H PRN Reason: mild pain or fever Alprazolam (Xanax Tab*) 0.5 mg PO Q6HR PRN Reason: ANXIETY Bisacodyl (Dulcolax Supp*) 10 mg [place] DAILY PRN Reason: constipation Diphenhydramine HCl (Benadryl Iv*) 12.5 mg IV Q6H PRN Reason: PRURITIS Diphenhydramine HCl (Benadryl Po*) 25 mg PO Q6H PRN Reason: INSOMNIA Docusate Sodium (Colace Cap*) 100 mg PO BID EMELY Enoxaparin Sodium (Lovenox(*)) 30 mg SUBCUT Q24H EMELY Lactated Ringer's (Lactated Ringers 1000 Ml Bag*) 1,000 mls @ 100 mls/hr IV PER RATE EMELY Lactulose (Lactulose*) 30 ml PO Q6H PRN Reason: constipation Magnesium Hydroxide (Milk Of Magnesia Liq*) 30 ml PO BID EMELY Morphine Sulfate (Morphine Inj (Syringe)*) 5 mg IV Q2H PRN Reason: PAIN Multivitamins ( Vitamin Tab*) 1 tab PO DAILY EMELY Nebivolol (Bystolic Tab (Nf)) 5 mg PO DAILY EMELY Nystatin (Nystatin Top Powder*) 1 applic TOPICAL BID EMELY Ondansetron HCl (Zofran Inj*) 4 mg IV Q6H PRN Reason: nausea Ondansetron HCl (Zofran Tab*) 4 mg PO Q6H PRN Reason: NAUSEA Oxycodone HCl (Roxycodone Tab*) 10 mg PO Q4H PRN Reason: breakthru pain Oxycodone/Acetaminophen (Percocet 5/325 Tab*) 1 tab PO Q3H PRN Reason: PAIN - MODERATE Oxycodone/Acetaminophen (Percocet 5/325 Tab*) 2 tab PO Q3H PRN Reason: PAIN - MODERATE Polyethylene Glycol/Electrolytes (Miralax*) 17 gm PO DAILY PRN Reason: Constipation Warfarin Sodium (Coumadin Tab(*)) 6 mg PO ONCE@1700 ONE Stop: 03/12/17 17:01 Vital Signs 03/11/17 03/11/17 03/11/17 11:48 12:30 12:32 Temperature 97.6 F Pulse Rate 63 Respiratory 13 20 20 Rate Blood Pressure 104/57 (mmHg) O2 Sat by Pulse 100 Oximetry 03/11/17 03/11/17 03/11/17 13:44 14:32 15:22 Temperature 99.1 F Pulse Rate 73 Respiratory 20 16 22 Rate Blood Pressure 113/56 (mmHg) O2 Sat by Pulse 100 Oximetry 03/11/17 03/11/17 03/11/17 15:44 16:00 17:08 Temperature Pulse Rate Respiratory 16 18 Rate Blood Pressure (mmHg) O2 Sat by Pulse 100 Oximetry 03/11/17 03/11/17 03/11/17 19:01 19:37 20:06 Temperature 99.0 F Pulse Rate 68 Respiratory 16 21 18 Rate Blood Pressure 133/93 (mmHg) O2 Sat by Pulse 98 Oximetry 03/11/17 03/11/17 03/11/17 20:17 20:24 21:54 Temperature Pulse Rate Respiratory 18 18 20 Rate Blood Pressure (mmHg) O2 Sat by Pulse Oximetry 03/11/17 03/12/17 03/12/17 23:32 02:04 03:31 Temperature 98.4 F 97.6 F Pulse Rate 84 84 Respiratory 16 16 Rate Blood Pressure 92/46 110/53 (mmHg) O2 Sat by Pulse 95 95 96 Oximetry 03/12/17 03/12/17 03/12/17 05:00 07:00 07:13 Temperature Pulse Rate Respiratory 20 18 20 Rate Blood Pressure (mmHg) O2 Sat by Pulse 96 Oximetry 03/12/17 03/12/17 03/12/17 07:27 08:00 09:52 Temperature 98.7 F Pulse Rate 91 Respiratory 23 20 22 Rate Blood Pressure 151/79 (mmHg) O2 Sat by Pulse 99 Oximetry Oxygen Devices in Use Now: None Appearance: NAD, laying in chair Ears/Nose/Mouth/Throat: Mucous Membranes Moist Respiratory: Symmetrical Chest Expansion and Respiratory Effort, Clear to Auscultation Cardiovascular: NL Sounds; No Murmurs; No JVD, RRR Abdominal: NL Sounds; No Tenderness; No Distention Extremities: - - Trace to 1+ bilateral LE edema Skin: - - Dressing to left LE clean, dry and intact Neurological: Alert and Oriented x 3, NL Muscle Strength and Tone Lines/Tubes/Other Access: Clean, Dry and Intact Peripheral IV - site benign Nutrition: Taking PO's Result Diagrams: 03/12/17 08:29 03/11/17 08:35 Assess/Plan/Problems-Billing Assessment: Ms. Tatum is a 71 yo female with PMH significant for HTN, HLD, anxiety, GERD and hx DVT who presented to the hospital for an elective left total knee replacement with Dr. Kemp on 03/10/2017. - Patient Problems (1) Status post total left knee replacement Code(s): Z96.652 - PRESENCE OF LEFT ARTIFICIAL KNEE JOINT SNOMED Code(s): 4236846403609 Comment: - POD #2, management per Ortho - HH down but stable. Continue to trend HH - Continue PT/OT, pain managment and bowel regimen (2) Thrombocytopenia Code(s): D69.6 - THROMBOCYTOPENIA, UNSPECIFIED SNOMED Code(s): 181827952 Comment: - Pre-op platelet 136, now down to 80 today - Suspect HIT vs acute blood loss - Will check a HIT panel - Change Lovenox to Arixtra (3) HTN (hypertension) Code(s): I10 - ESSENTIAL (PRIMARY) HYPERTENSION SNOMED Code(s): 54381005 Comment: - BP soft with SBP 90-150's - Continue to hold Valsartan and HCTZ - Continue Bystolic with hold parameters (4) HLD (hyperlipidemia) Code(s): E78.5 - HYPERLIPIDEMIA, UNSPECIFIED SNOMED Code(s): 71802994 Comment: - Not currently on medication (5) History of DVT (deep vein thrombosis) Code(s): Z86.718 - PERSONAL HISTORY OF OTHER VENOUS THROMBOSIS AND EMBOLISM SNOMED Code(s): 254677799 Comment: - INR subtherapeutic - Bridge Arixtra to Warfarin (6) Anxiety Code(s): F41.9 - ANXIETY DISORDER, UNSPECIFIED SNOMED Code(s): 31175234 Comment: - Continue PRN Xanax (7) Thoracic aortic aneurysm Code(s): I71.2 - THORACIC AORTIC ANEURYSM, WITHOUT RUPTURE SNOMED Code(s): 495757670 Comment: - Monitor for chest pain and maintain normotensive BP (8) GERD (gastroesophageal reflux disease) Code(s): K21.9 - GASTRO-ESOPHAGEAL REFLUX DISEASE WITHOUT ESOPHAGITIS SNOMED Code(s): 614513070 Comment: - Not currently on medication (9) DVT prophylaxis Code(s): XJQ7223 - SNOMED Code(s): 840311006 Comment: - Arixtra bridge to warfarin per Orthopedics (10) Full code status Code(s): Z78.9 - OTHER SPECIFIED HEALTH STATUS SNOMED Code(s): 225686737 Status and Disposition: Inpatient. Disposition per Orthopedics. Thank you for this consultation, we will continue to follow.
[2017-03-12] MEDS: Acetaminophen TAB* 325 MG PO PRN ×2 (13:00→17:02)
[2017-03-12] MEDS ORDERED: Fondaparinux* 2.5 MG/0.5 ML SYRINGE SUBCUT SCH (14:00)
[2017-03-12] MEDS ORDERED: Warfarin TAB(*) 6 MG PO ONE (17:00)
[2017-03-13 06:29] LABS: Hematocrit 28 % (35-47); Mean Corpuscular HGB Conc 32 g/dl (31-36); Mean Corpuscular Hemoglobin 30 pg (27-31); Mean Corpuscular Volume 93 fL (80-97); Mean Platelet Volume 10 um3 (7.4-10.4); Red Blood Count 3.03 10^6/ul (4.0-5.4); Red Cell Distribution Width 15 % (10.5-15)
[2017-03-13 06:30] LABS: Comments Flag Yes
[2017-03-13] MEDS: ALPRAZolam TAB* 0.5 MG PO PRN (07:31)
--- NOTE | 2017-03-13 08:07 | PN ---
Progress Note - Progress Note Date of Service: 03/13/17 SOAP: Subjective: 71 y/o s/p L TKA by Dr. Kemp 03/10/2017. Afebrile, VSS overnight. patient tearful, concerned about slow recover, reports yesterday felt well, however now has increased pain. Pain medication controlling pain well. Objective: General- Resting comfortably in chair, tearful at at times. MSK- Dressing removed, incision c/d/i, no drainage noted, no erythema. sutures in place, new dressing placed. + DF/PF. PT pulses 2+. sensation grossly intact. Vital Signs Temp 98.8 F 03/13/17 03:57 Pulse 85 03/13/17 03:57 Resp 16 03/13/17 07:31 BP 132/76 03/13/17 03:57 Pulse Ox 99 03/13/17 03:57 Intake & Output 03/12/17 03/13/17 03/13/17 18:59 06:59 18:59 Intake Total 1580 960 Output Total 1350 900 Balance 230 60 Intake: IV Fluids 980 LR 980 Oral 600 960 Output: Urine 1350 900 Laboratory Results - last 24 hr 03/12/17 03/12/17 03/13/17 08:29 08:29 05:44 WBC 5.6 RBC 3.13 L Hgb 9.3 L Hct 29 L MCV 92 MCH 30 MCHC 32 RDW 15 Plt Count 80 L MPV 9 Neut % (Auto) Lymph % (Auto) [place] % (Auto) Eos % (Auto) Baso % (Auto) Absolute Neuts (auto) Absolute Lymphs (auto) Absolute Monos (auto) Absolute Eos (auto) Absolute Basos (auto) Absolute Nucleated RBC Nucleated RBC % INR (Anticoag Therapy) 1.23 H 1.30 H 03/13/17 05:44 WBC 5.0 RBC 3.03 L Hgb 9.0 L Hct 28 L MCV 93 MCH 30 MCHC 32 RDW 15 Plt Count 79 L MPV 10 Neut % (Auto) 78.7 Lymph % (Auto) 10.4 L [place] % (Auto) 9.0 Eos % (Auto) 1.6 Baso % (Auto) 0.3 Absolute Neuts (auto) 3.9 Absolute Lymphs (auto) 0.5 L Absolute Monos (auto) 0.4 Absolute Eos (auto) 0.1 Absolute Basos (auto) 0 Absolute Nucleated RBC 0 Nucleated RBC % 0 INR (Anticoag Therapy) Assessment: 71 y/o s/p L TKA by Dr. Kemp 03/10/2017. Plan: - DVT prophylaxis- d/t thrombocytopenia on aritra, coumadin. Continue arixtra today, continue to follow INRs - Continue pain management - Continue PT/ OT - D/C to rehab today - F/U with Dr. Kemp within 10 days Active Medications Generic Name Dose Route Start Last Admin Trade Name Freq PRN Reason Stop Dose Admin Acetaminophen 650 mg 03/10/17 13:07 03/12/17 17:02 Tylenol Tab* PO 650 mg Q4H PRN Administration mild pain or fever Alprazolam 0.5 mg 03/11/17 02:14 03/13/17 07:31 Xanax Tab* PO 0.5 mg Q6HR PRN Administration ANXIETY Bisacodyl 10 mg 03/10/17 13:07 Dulcolax Supp* [place] DAILY PRN constipation Diphenhydramine HCl 12.5 mg 03/10/17 13:07 Benadryl Iv* IV Q6H PRN PRURITIS Diphenhydramine HCl 25 mg 03/10/17 13:07 Benadryl Po* PO Q6H PRN INSOMNIA Docusate Sodium 100 mg 03/10/17 21:00 03/12/17 21:15 Colace Cap* PO Not Given BID EMELY Fondaparinux 2.5 mg 03/12/17 14:00 03/12/17 13:43 Arixtra* SUBCUT 2.5 mg DAILY@1400 EMELY Administration Lactulose 30 ml 03/10/17 13:07 03/12/17 17:02 Lactulose* PO 30 ml Q6H PRN Administration constipation Magnesium Hydroxide 30 ml 03/10/17 21:00 03/12/17 21:15 Milk Of Magnesia Liq* PO Not Given BID EMELY Morphine Sulfate 5 mg 03/11/17 02:14 Morphine Inj (Syringe)* IV Q2H PRN PAIN Multivitamins 1 tab 03/11/17 09:00 03/12/17 08:27 Vitamin Tab* PO 1 tab DAILY EMELY Administration Nebivolol 5 mg 03/11/17 09:00 03/12/17 08:27 Bystolic Tab (Nf) PO 5 mg DAILY EMELY Administration Nystatin 1 applic 03/10/17 21:00 03/12/17 21:15 Nystatin Top Powder* TOPICAL 1 applic BID EMELY Administration Ondansetron HCl 4 mg 03/11/17 03:35 Zofran Inj* IV Q6H PRN nausea Ondansetron HCl 4 mg 03/11/17 03:35 Zofran Tab* PO Q6H PRN NAUSEA Oxycodone HCl 10 mg 03/11/17 02:14 03/11/17 10:30 Roxycodone Tab* PO 10 mg Q4H PRN Administration breakthru pain Oxycodone/Acetaminophen 1 tab 03/11/17 02:14 Percocet 5/325 Tab* PO Q3H PRN PAIN - MODERATE Oxycodone/Acetaminophen 2 tab 03/11/17 02:14 03/12/17 21:26 Percocet 5/325 Tab* PO 2 tab Q3H PRN Administration PAIN - MODERATE Polyethylene Glycol/Electrolytes 17 gm 03/10/17 13:07 Miralax* PO DAILY PRN Constipation
[2017-03-13 08:12] VITALS: BP 161/94
[2017-03-13] MEDS: oxyCODONE/Acetamin 5/325 MG* TAB PO PRN ×2 (08:17→12:01)
[2017-03-13] MEDS: Prenatal Vitamin TAB PO SCH (08:17)
[2017-03-13] MEDS: Docusate CAP* 100 MG PO SCH (08:17)
[2017-03-13] MEDS: CMCS:Nebivolol TAB (NF) 2.5 MG TAB PO SCH (08:17)
[2017-03-13] MEDS: Magnesium Hydroxide LIQ* 30 ML UDC PO SCH (08:18)
--- NOTE | 2017-03-13 11:49 | DS ---
Discharge Summary Date of Admission: 03/10/2017 Date of Discharge: 03/13/2017 Provider: Dr. Nasrin Kemp Principle Diagnosis: LEFT total knee replacement due to OA Secondary Diagnoses: See H&P Principle procedure: LEFT total knee replacement Consultations: Physical therapy, occupational therapy, medicine HPI: Refer to H&P Hospital Course: The patient was admitted on 03/10/2017 and underwent a left total knee replacement. She tolerated the procedure well and there were no complications. The patient had spinal anesthesia and was quite comfortable in the immediate postoperative period. On POD#1 the patients H&H was 10.1/31. Dressing was CDI, she was neurovascularly intact with good sensation distal to the left knee. She could demonstrate dorsi and plantar flexion with good strength. Participation in physical and occupational therapy was begun. Pain management was tolerated with PO Percocet. On POD#2 the urinary catheter was discontinued and the patient was able to void spontaneously. The dressing was changed and the wound was found to be benign with minimal drainage and erythema. Vital signs were stable and the patient was afebrile. POD#3 bladder function had normalized, she was passing gas, and the patient was cleared by physical therapy for safe discharge to SNF. She will continue with the exercises learned with physical therapy and arrangements were made for visiting home physical therapy as well. At discharge the H&H was 9.0/28, vital signs were stable and the INR value was 1.3. The patient was discharged with a prescription for Coumadin 2 mg. The INR will be monitored on Mondays and and the Coumadin dose adjusted accordingly. The patient will resume the home medications as indicated in the discharge instructions. Sutures will be removed in 10-[address] Santana office. Discharge Medications: Acetaminophen (Tylenol Tab*) 650 mg PO Q4H PRN PRN Reason: mild pain or fever Alprazolam (Xanax Tab*) 0.5 mg PO Q6HR PRN PRN Reason: ANXIETY Diovan 320-12.5 mg one tablet daily Docusate Sodium (Colace Cap*) 100 mg PO BID [facility] Multivitamins ( Vitamin Tab*) 1 tab PO DAILY EMELY Nebivolol (Bystolic Tab (Nf)) 5 mg PO DAILY EMELY Nystatin (Nystatin Top Powder*) 1 applic TOPICAL BID EMELY Oxycodone/Acetaminophen (Percocet 5/325 Tab*) 1-2 tab PO Q3H PRN Coumadin 2mg 1-3 tablets as directed daily at 5PM Coumadin Dosing: Thursday 8/4: 10 mg Thursday 85: 8 mg Thursday 03/15: 6mg Condition: Stable Disposition: [facility] for PT, INR draws on Thursday and Follow up: Patient will follow up with Dr. Kemp in 10-14 days at [facility] Orthopedics
--- NOTE | 2017-03-13 12:20 | PN ---
Subjective Date of Service: 03/13/17 Interval History: Patient seen and examined at bedside. Denies fever, chills, shortness of breath , chest discomfort, N/V/D. Pt states that she is having difficulty with ambulation and pain control. Pt is also anxious about going to [facility] today. Family History: Unchanged from Admission Social History: Unchanged from Admission Past Medical History: Unchanged from Admission Objective Active Medications: Acetaminophen (Tylenol Tab*) 650 mg PO Q4H PRN Reason: mild pain or fever Alprazolam (Xanax Tab*) 0.5 mg PO Q6HR PRN Reason: ANXIETY Bisacodyl (Dulcolax Supp*) 10 mg FL DAILY PRN Reason: constipation Diphenhydramine HCl (Benadryl Iv*) 12.5 mg IV Q6H PRN Reason: PRURITIS Diphenhydramine HCl (Benadryl Po*) 25 mg PO Q6H PRN Reason: INSOMNIA Docusate Sodium (Colace Cap*) 100 mg PO BID EMELY Fondaparinux (Arixtra*) 2.5 mg SUBCUT DAILY@1400 EMELY Lactulose (Lactulose*) 30 ml PO Q6H PRN Reason: constipation Magnesium Hydroxide (Milk Of Magnesia Liq*) 30 ml PO BID EMELY Morphine Sulfate (Morphine Inj (Syringe)*) 5 mg IV Q2H PRN Reason: PAIN Multivitamins ( Vitamin Tab*) 1 tab PO DAILY EMELY Nebivolol (Bystolic Tab (Nf)) 5 mg PO DAILY EMELY Nystatin (Nystatin Top Powder*) 1 applic TOPICAL BID EMELY Ondansetron HCl (Zofran Inj*) 4 mg IV Q6H PRN Reason: nausea Ondansetron HCl (Zofran Tab*) 4 mg PO Q6H PRN Reason: NAUSEA Oxycodone HCl (Roxycodone Tab*) 10 mg PO Q4H PRN Reason: breakthru pain Oxycodone/Acetaminophen (Percocet 5/325 Tab*) 1 tab PO Q3H PRN Reason: PAIN - MODERATE Oxycodone/Acetaminophen (Percocet 5/325 Tab*) 2 tab PO Q3H PRN Reason: PAIN - MODERATE Polyethylene Glycol/Electrolytes (Miralax*) 17 gm PO DAILY PRN Reason: Constipation Vital Signs 03/12/17 03/12/17 03/12/17 12:15 15:45 16:00 Temperature 98.2 F Pulse Rate 72 Respiratory 16 Rate Blood Pressure 100/58 104/55 (mmHg) O2 Sat by Pulse 99 99 Oximetry 03/12/17 03/12/17 03/12/17 19:28 20:00 21:26 Temperature 98.7 F Pulse Rate 89 Respiratory 16 17 17 Rate Blood Pressure 125/91 (mmHg) O2 Sat by Pulse 89 Oximetry 03/12/17 03/12/17 03/13/17 23:26 23:42 03:57 Temperature 98.8 F 98.8 F Pulse Rate 77 85 Respiratory 16 16 16 Rate Blood Pressure 95/47 132/76 (mmHg) O2 Sat by Pulse 93 99 Oximetry 03/13/17 03/13/17 03/13/17 07:28 07:31 07:38 Temperature 98.7 F Pulse Rate 99 Respiratory 20 16 18 Rate Blood Pressure 161/94 (mmHg) O2 Sat by Pulse 97 97 Oximetry Oxygen Devices in Use Now: None Appearance: NAD, sitting up in a chair Ears/Nose/Mouth/Throat: Mucous Membranes Moist Respiratory: Symmetrical Chest Expansion and Respiratory Effort, Clear to Auscultation Cardiovascular: NL Sounds; No Murmurs; No JVD, RRR Abdominal: NL Sounds; No Tenderness; No Distention Extremities: - - Left knee dressing clean, dry and intact. Skin: No Rash or Ulcers, - - Dressing to left knee clean, dry and intact Neurological: Alert and Oriented x 3, NL Muscle Strength and Tone Lines/Tubes/Other Access: Clean, Dry and Intact Peripheral IV - site benign Nutrition: Taking PO's Result Diagrams: 03/13/17 05:44 03/11/17 08:35 Assess/Plan/Problems-Billing Assessment: Ms. Tatum is a 71 yo female with PMH significant for HTN, HLD, anxiety, GERD and hx DVT who presented to the hospital for an elective left total knee replacement with Dr. Kemp on 03/10/2017. - Patient Problems (1) Status post total left knee replacement Code(s): Z96.652 - PRESENCE OF LEFT ARTIFICIAL KNEE JOINT SNOMED Code(s): 4583374489721 Comment: - POD #3, management per Ortho - HH stable. - Continue PT/OT, pain managment and bowel regimen (2) Thrombocytopenia Code(s): D69.6 - THROMBOCYTOPENIA, UNSPECIFIED SNOMED Code(s): 964659404 Comment: - Pre-op platelet 136, now down to 79 today - Suspect HIT vs acute blood loss - HIT panel pending - Change Lovenox to Arixtra - Should get followup labs in 1-2 weeks (3) HTN (hypertension) Code(s): I10 - ESSENTIAL (PRIMARY) HYPERTENSION SNOMED Code(s): 23232567 Comment: - BP soft at times with SBP 90-160's - Resume Valsartan and HCTZ - Continue Bystolic (4) HLD (hyperlipidemia) Code(s): E78.5 - HYPERLIPIDEMIA, UNSPECIFIED SNOMED Code(s): 20028587 Comment: - Not currently on medication (5) History of DVT (deep vein thrombosis) Code(s): Z86.718 - PERSONAL HISTORY OF OTHER VENOUS THROMBOSIS AND EMBOLISM SNOMED Code(s): 134457362 Comment: - INR subtherapeutic - Bridge Arixtra to Warfarin (6) Anxiety Code(s): F41.9 - ANXIETY DISORDER, UNSPECIFIED SNOMED Code(s): 69296870 Comment: - Continue PRN Xanax (7) Thoracic aortic aneurysm Code(s): I71.2 - THORACIC AORTIC ANEURYSM, WITHOUT RUPTURE SNOMED Code(s): 903321090 Comment: - Monitor for chest pain and maintain normotensive BP (8) GERD (gastroesophageal reflux disease) Code(s): K21.9 - GASTRO-ESOPHAGEAL REFLUX DISEASE WITHOUT ESOPHAGITIS SNOMED Code(s): 461398445 Comment: - Not currently on medication (9) DVT prophylaxis Code(s): IFZ5040 - SNOMED Code(s): 422075693 Comment: - Arixtra bridge to warfarin per Orthopedics (10) Full code status Code(s): Z78.9 - OTHER SPECIFIED HEALTH STATUS SNOMED Code(s): 269441135 Status and Disposition: Inpatient. Disposition per Orthopedics. Plan for discharge to [facility]. Thank you for this consultation, will sign off at this time.
[2017-03-16 10:59] LABS: Heparin PF4 Ab Reactivity 0.095
[2017-03-16 11:01] LABS: Heparin PF4 Antibody Interp Negative
== END 2017-03-13 12:36 | DRG 302 ==
LOC: AA 08:41 → SSU 15:06
PROVIDERS: ADMIT Orthopaedic Surgery Adult Reconstructive Orthopaedic Surgery; ATTEND Orthopaedic Surgery Adult Reconstructive Orthopaedic Surgery
PROC: 0SRD0J9 Replacement of Left Knee Joint with Synthetic Substitute, Cemented, Open Approach (ICD-10-PCS; principal; 2017-03-10 11:00)
DX: M17.12 Unilateral primary osteoarthritis, left knee (principal); D69.6 Thrombocytopenia, unspecified; I95.9 Hypotension, unspecified; I71.2 Thoracic aortic aneurysm, without rupture; K21.9 Gastro-esophageal reflux disease without esophagitis; I10 Essential (primary) hypertension; E78.00 Pure hypercholesterolemia, unspecified; F41.9 Anxiety disorder, unspecified; Z85.05 Personal history of malignant neoplasm of liver; Z98.51 Tubal ligation status; Z82.49 Family history of ischemic heart disease and other diseases of the circulatory system; Z86.718 Personal history of other venous thrombosis and embolism; E78.5 Hyperlipidemia, unspecified; Z82.3 Family history of stroke
CPT/HCPCS: 36415; 80048; 85025; 85027; 85060; 85610; 86022; 88305; 88311; 94760; A9270-GY; C1776; J0690; J1170; J1240; J1650; J1885; J2250; J2405; J2704; J3010

== ENCOUNTER 2019-05-07 13:35 | Emergency (ER) | payer BC ==
--- OUTSIDE RECORDS SUMMARY | 2019-05-07 14:09 | XMS REPORT | Continuity of Care Document ---
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 Onset: 03/26/2016 Aneurysm of thoracic aorta Charlene Guevara M.D. 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 Onset: 10/28/2016 Encounter for antineoplastic chemotherapy Valorie Sood DO Onset: 2018 Social History Type Date Description Comments Sex Unknown Tobacco Use Start: Unknown Never Smoked Cigarettes Smoking Status Reviewed: 02/07/19 Never Smoked Cigarettes ETOH Use Rarely consumes alcohol Tobacco Use Start: Unknown Patient has never smoked Allergies, Adverse Reactions, Alerts Description No Known Drug Allergies Medications Active Medications SIG Qnty Indications Ordering Date Provider Warfarin Sodium 1 po qd 100tabs Ivet Cramer, 02/07/2019 4mg MD Tablets Olmesartan 1 by mouth every 90tabs Ivet Cramer, 10/14/2018 Medoxomil/Hydrochlor day this replaces othiazide the valsartan 40-25mg Tablets Celecoxib take one capsule 90caps Ivet Cramer, 07/31/2017 200mg by mouth every day MD Capsules as needed for pain, take with food or snack. Simvastatin take one tablet by 90tabs Ivet Cramer, 11/23/2014 20mg mouth every MD Tablets evening Alprazolam 1 by mouth twice a 60tabs F41.9 Ivet Cramer, 12/05/2013 0.25mg day as needed MD Tablets Reference #: [id number] Sandostatin Lar 30mg Im monthly Unknown Depot injections 30mg Kit Immunizations CPT Code Status Date Vaccine Reaction Lot # [id number] Given 07/29/2018 Influenza High Dose [id number] 11367 Given 04/23/2017 Influenza Virus Vaccine Quadrivalent Iiv4 Split Preser Free Id Q2038 Given 07/29/2016 Influenza Vaccine (Fluzone) Age 3 And Older [id number] Given 07/29/2016 Influenza Vaccine (Fluzone) Age 3 And [id number] Older Q2038 Given 06/11/2015 Influenza Vaccine (Fluzone) Age 3 And [id number] Older 04581 Given 06/11/2015 Pneumococcal Conjugate Vaccine 13 Valent [id number] For Intramuscular Use 78094 Given 05/05/2014 flu vaccination 07743 Given 04/12/2013 flu vaccination 74355 Given 05/14/2012 flu vaccination AT [facility] 72766 Given 06/04/2011 flu vaccination 09551 Given 05/29/2010 Pneumovax Injection 74128 Given 04/09/2009 flu vaccination Vital Signs Date Vital Result Comment 03/21/2019 2:06pm BP Systolic 110 mmHg R BP Diastolic 69 mmHg R Body Temperature 98.0 F Heart Rate 76 /min Respiratory Rate 18 /min O2 % BldC Oximetry 97 % Pain Level 0 02/14/2019 2:00pm BP Systolic 88 mmHg BP Diastolic 67 mmHg Body Temperature 95.9 F Heart Rate 83 /min Respiratory Rate 16 /min Weight 206.25 lb O2 % BldC Oximetry 96 % Pain Level 0 Results Test Date Facility Test Result H/L Range Note CBS 03/21/2019 [facility] White Blood 5.0 K/uL Normal 3.1-10.7 1 W/Automated [address] [place] [address] [phone] Red Blood Count 4.58 M/uL Normal 3.90-5.40 Hemoglobin 13.5 gm/dL Normal 11.6-15.8 Hematocrit 42.8 % Normal 36.0-46.1 Mean Cell Volume 93.4 fl Normal 80.9-99.0 Mean Corpuscular HGB 29.5 pg Normal 25.9-32.7 Mean Corpuscular HGB Conc 31.5 g/dL Normal 30.8-34.3 Platelet Count 133 K/uL Low 155-360 Red Cell Distri Width SD 51.1 fl High 36-47 Red Cell Distri Width %CV 14.9 % High 11.7-14.4 Mean Platelet Volume 11.9 fl Normal 8.9-12.4 Neut% 63.1 % Normal 40.4-72.8 Lymph % 25.3 % Normal 20.0-42.0 [place] % 8.8 % Normal 4.3-13.2 Eo% 1.8 % Normal 0.0-6.6 Bas% 0.8 % Normal 0.0-1.1 Immature Grans 0.2 % Normal 0.0-5.0 NRBC % 0.0 /100WBC < 10/ 100 WBC Neut# 3.14 K/uL Normal 1.8-7.0 Lymph # 1.26 K/uL Normal 1.0-4.0 [place] # 0.44 K/uL Normal 0.3-0.9 Eos # 0.09 K/uL Normal 0.0-0.5 Baso # 0.04 K/uL Normal 0.0-0.1 Immature Grans Absolute 0.01 K/uL NRBC # 0.00 K/uL Comprehensive 03/21/2019 [facility] Glucose 86 mg/dL Normal 74-106 Metabolic Panel [address] [place] [address] [phone] BUN 27 mg/dL High 7-18 Creatinine 1.1 mg/dL Normal 0.6-1.3 Glom Filtration Rate, Estimate 51 mL/min >60 If >60 mL/min >60 2 BUN/Creat 24.5 ratio Sodium 141 mmol/L Normal 136-145 Potassium 4.1 mmol/L Normal 3.5-5.1 Chloride 109 mmol/L High 98-107 Carbon Dioxide 26 mmol/L Normal 21-32 Anion Gap 6 mEq/L Low 8-16 Calcium 8.6 mg/dL Normal 8.5-10.1 Total Protein 7.8 g/dL Normal 6.4-8.2 Albumin 3.4 g/dL Normal 3.4-5.0 Globulin 4.4 g/dL High 1.9-4.3 Alb/Glob 0.8 ratio Bilirubin,Total 0.5 mg/dL Normal 0.2-1.0 Sgot/Ast 22 U/L Normal 15-37 SGPT/Alt 24 U/L Normal 12-78 Alkaline Phosphatase 94 U/L Normal 45-117 Protime 02/24/2019 [facility] Protime 21.6 seconds High 12.0-14.[address] [place], [place] [id number] [phone] Inr 1.9 High 0.9-1.1 4 Anticoagulant Therapy? YES Date of Last Dose: 02/23/19 Time of Last Dose: 1030PM CBS W/Automated 02/14/2019 [facility] White Blood 5.8 K/uL Normal 3.1-10.7 [address] [place] [address] [phone] Red Blood Count 4.62 M/uL Normal 3.90-5.40 Hemoglobin 13.7 gm/dL Normal 11.6-15.8 Hematocrit 42.0 % Normal 36.0-46.1 Mean Cell Volume 90.9 fl Normal 80.9-99.0 Mean Corpuscular HGB 29.7 pg Normal 25.9-32.7 Mean Corpuscular HGB Conc 32.6 g/dL Normal 30.8-34.3 Platelet Count 131 K/uL Low 155-360 Red Cell Distri Width SD 47.6 fl High 36-47 Red Cell Distri Width %CV 14.3 % Normal 11.7-14.4 Mean Platelet Volume 12.1 fl Normal 8.9-12.4 Neut% 64.3 % Normal 40.4-72.8 Lymph % 24.1 % Normal 20.0-42.0 [place] % 8.8 % Normal 4.3-13.2 Eo% 2.1 % Normal 0.0-6.6 Bas% 0.5 % Normal 0.0-1.1 Immature Grans 0.2 % Normal 0.0-5.0 NRBC % 0.0 /100WBC < 10/ 100 WBC Neut# 3.74 K/uL Normal 1.8-7.0 Lymph # 1.40 K/uL Normal 1.0-4.0 [place] # 0.51 K/uL Normal 0.3-0.9 Eos # 0.12 K/uL Normal 0.0-0.5 Baso # 0.03 K/uL Normal 0.0-0.1 Immature Grans Absolute 0.01 K/uL NRBC # 0.00 K/uL Comprehensive 02/14/2019 [facility] Glucose 91 mg/dL Normal 74-106 Metabolic Panel [address] [place], [place] [id number] [phone] BUN 31 mg/dL High 7-18 Creatinine 1.4 mg/dL High 0.6-1.3 Glom Filtration Rate, Estimate 39 mL/min >60 If 47 mL/min >60 6 BUN/Creat 22.1 ratio Sodium 142 mmol/L Normal 136-145 Potassium 4.2 mmol/L Normal 3.5-5.1 Chloride 109 mmol/L High 98-107 Carbon Dioxide 26 mmol/L Normal 21-32 Anion Gap 7 mEq/L Low 8-16 Calcium 8.6 mg/dL Normal 8.5-10.1 Total Protein 7.9 g/dL Normal 6.4-8.2 Albumin 3.5 g/dL Normal 3.4-5.0 Globulin 4.4 g/dL High 1.9-4.3 Alb/Glob 0.8 ratio Bilirubin,Total 0.8 mg/dL Normal 0.2-1.0 Sgot/Ast 27 U/L Normal 15-37 SGPT/Alt 24 U/L Normal 12-78 Alkaline Phosphatase 102 U/L Normal 45-117 Urine Dipstick 02/07/2019 [facility] Ua Color <pending> Yellow Ua Clarity <pending> Clear Ua Leuko 2+ High Negative Ua Nitrite positive Negative Ua Urobilinogen - Low 0.2 - 1.0 E.U./dL Ua Protein trace Negative Ua PH 5.5 Low 6.5-7.5 Ua Blood - Negative Ua Specific [place] 1.030 1.010-1.030 Ua Ketones trace Negative Ua Bilirubin 1+ High Negative Ua Glucose - Negative Protime 01/21/2019 [facility] Protime 22.2 seconds High 12.0-14.[address] [place] [address] [phone] Inr 1.9 High 0.9-1.1 8 Anticoagulant Therapy? YES Date of Last Dose: 01/20/19 Time of Last Dose: 2229 CBS W/Automated 01/14/2019 [facility] White Blood 5.8 K/uL Normal 3.1-10.7 [address] [place] [address] [phone] Red Blood Count 4.63 M/uL Normal 3.90-5.40 Hemoglobin 13.5 gm/dL Normal 11.6-15.8 Hematocrit 42.4 % Normal 36.0-46.1 Mean Cell Volume 91.6 fl Normal 80.9-99.0 Mean Corpuscular HGB 29.2 pg Normal 25.9-32.7 Mean Corpuscular HGB Conc 31.8 g/dL Normal 30.8-34.3 Platelet Count 152 K/uL Low 155-360 Red Cell Distri Width SD 47.8 fl High 36-47 Red Cell Distri Width %CV 14.2 % Normal 11.7-14.4 Mean Platelet Volume 11.4 fl Normal 8.9-12.4 Neut% 60.7 % Normal 40.4-72.8 Lymph % 25.8 % Normal 20.0-42.0 [place] % 9.5 % Normal 4.3-13.2 Eo% 2.9 % Normal 0.0-6.6 Bas% 0.9 % Normal 0.0-1.1 Immature Grans 0.2 % Normal 0.0-5.0 NRBC % 0.0 /100WBC < 10/ 100 WBC Neut# 3.53 K/uL Normal 1.8-7.0 Lymph # 1.50 K/uL Normal 1.0-4.0 [place] # 0.55 K/uL Normal 0.3-0.9 Eos # 0.17 K/uL Normal 0.0-0.5 Baso # 0.05 K/uL Normal 0.0-0.1 Immature Grans Absolute 0.01 K/uL NRBC # 0.00 K/uL Comprehensive Metabolic 01/14/2019 [facility] Glucose 73 mg/dL Low 74-106 Panel [address] [place] [address] [phone] BUN 26 mg/dL High 7-18 Creatinine 1.1 mg/dL Normal 0.6-1.3 Glom Filtration Rate, Estimate 51 mL/min >60 If >60 mL/min >60 10 BUN/Creat 23.6 ratio Sodium 141 mmol/L Normal 136-145 Potassium 4.3 mmol/L Normal 3.5-5.1 Chloride 110 mmol/L High 98-107 Carbon Dioxide 25 mmol/L Normal 21-32 Anion Gap 6 mEq/L Low 8-16 Calcium 8.6 mg/dL Normal 8.5-10.1 Total Protein 7.5 g/dL Normal 6.4-8.2 Albumin 3.4 g/dL Normal 3.4-5.0 Globulin 4.1 g/dL Normal 1.9-4.3 Alb/Glob 0.8 ratio Bilirubin,Total 0.4 mg/dL Normal 0.2-1.0 Sgot/Ast 30 U/L Normal 15-37 SGPT/Alt 25 U/L Normal 12-78 Alkaline Phosphatase 116 U/L Normal 45-117 Xray 01/12/2019 [facility] - Radiology Octreotide <pending> [address] [place] [address] [phone] [facility] 12/27/2018 [facility] Glucose 81 mg/dL Normal 74-1 Metabolic Panel [address] [address] [phone] BUN 27 mg/dL High 7-18 Creatinine 1.0 mg/dL Normal 0.6-1.3 Glom Filtration Rate, Estimate 57 mL/min >60 If >60 mL/min >60 11 BUN/Creat 27.0 ratio Sodium 141 mmol/L Normal 136-145 Potassium 3.9 mmol/L Normal 3.5-5.1 Chloride 108 mmol/L High 98-107 Carbon Dioxide 24 mmol/L Normal 21-32 Anion Gap 9 mEq/L Normal 8-16 Calcium 8.9 mg/dL Normal 8.5-10.1 Total Protein 7.5 g/dL Normal 6.4-8.2 Albumin 3.6 g/dL Normal 3.4-5.0 Globulin 3.9 g/dL Normal 1.9-4.3 Alb/Glob 0.9 ratio Bilirubin,Total 0.6 mg/dL Normal 0.2-1.0 Sgot/Ast 29 U/L Normal 15-37 SGPT/Alt 26 U/L Normal 12-78 Alkaline Phosphatase 108 U/L Normal 45-117 CBC W/Automated 12/27/2018 [facility] White Blood 5.5 K/uL Normal 3.1-10.[address] [place] [address] [phone] Red Blood Count 4.45 M/uL Normal 3.90-5.40 Hemoglobin 13.2 gm/dL Normal 11.6-15.8 Hematocrit 40.8 % Normal 36.0-46.1 Mean Cell Volume 91.7 fl Normal 80.9-99.0 Mean Corpuscular HGB 29.7 pg Normal 25.9-32.7 Mean Corpuscular HGB Conc 32.4 g/dL Normal 30.8-34.3 Platelet Count 129 K/uL Low 155-360 Red Cell Distri Width SD 47.6 fl High 36-47 Red Cell Distri Width %CV 14.1 % Normal 11.7-14.4 Mean Platelet Volume 11.7 fl Normal 8.9-12.4 Neut% 61.4 % Normal 40.4-72.8 Lymph % 27.3 % Normal 20.0-42.0 [place] % 8.0 % Normal 4.3-13.2 Eo% 2.2 % Normal 0.0-6.6 Bas% 0.7 % Normal 0.0-1.1 Immature Grans 0.4 % Normal 0.0-5.0 NRBC % 0.0 /100WBC < 10/ 100 WBC Neut# 3.38 K/uL Normal 1.8-7.0 Lymph # 1.50 K/uL Normal 1.0-4.0 [place] # 0.44 K/uL Normal 0.3-0.9 Eos # 0.12 K/uL Normal 0.0-0.5 Baso # 0.04 K/uL Normal 0.0-0.1 Immature Grans Absolute 0.02 K/uL NRBC # 0.00 K/uL Protime 12/27/2018 [facility] Protime 16.4 seconds High 12.0-14.[address] [place], [place] [address] [phone] Inr 1.3 High 0.9-1.1 12 Anticoagulant Therapy? Unknown CBS W/Automated 11/29/2018 [facility] White Blood 5.7 K/uL Normal 3.1-10.[address] Count [place], [place] [id number] [phone] Red Blood Count 4.48 M/uL Normal 3.90-5.40 Hemoglobin 13.3 gm/dL Normal 11.6-15.8 Hematocrit 40.9 % Normal 36.0-46.1 Mean Cell Volume 91.3 fl Normal 80.9-99.0 Mean Corpuscular HGB 29.7 pg Normal 25.9-32.7 Mean Corpuscular HGB Conc 32.5 g/dL Normal 30.8-34.3 Platelet Count 154 K/uL Low 155-360 Red Cell Distri Width SD 45.8 fl Normal 36-47 Red Cell Distri Width %CV 13.6 % Normal 11.7-14.4 Mean Platelet Volume 11.5 fl Normal 8.9-12.4 Neut% 67.2 % Normal 40.4-72.8 Lymph % 20.7 % Normal 20.0-42.0 [place] % 8.0 % Normal 4.3-13.2 Eo% 2.7 % Normal 0.0-6.6 Bas% 1.2 % High 0.0-1.1 Immature Grans 0.2 % Normal 0.0-5.0 NRBC % 0.0 /100WBC < 10/ 100 WBC Neut# 3.81 K/uL Normal 1.8-7.0 Lymph # 1.17 K/uL Normal 1.0-4.0 [place] # 0.45 K/uL Normal 0.3-0.9 Eos # 0.15 K/uL Normal 0.0-0.5 Baso # 0.07 K/uL Normal 0.0-0.1 Immature Grans Absolute 0.01 K/uL NRBC # 0.00 K/uL Comprehensive 11/29/2018 [facility] Glucose 78 mg/dL Normal 74-106 Metabolic Panel [address] [place] [address] [phone] BUN 21 mg/dL High 7-18 Creatinine 0.9 mg/dL Normal 0.6-1.3 Glom Filtration Rate, Estimate >60 mL/min >60 If >60 mL/min >60 13 BUN/Creat 23.3 ratio Sodium 140 mmol/L Normal 136-145 Potassium 4.0 mmol/L Normal 3.5-5.1 Chloride 110 mmol/L High 98-107 Carbon Dioxide 23 mmol/L Normal 21-32 Anion Gap 7 mEq/L Low 8-16 Calcium 8.4 mg/dL Low 8.5-10.1 Total Protein 7.6 g/dL Normal 6.4-8.2 Albumin 3.2 g/dL Low 3.4-5.0 Globulin 4.4 g/dL High 1.9-4.3 Alb/Glob 0.7 ratio Bilirubin,Total 0.6 mg/dL Normal 0.2-1.0 Sgot/Ast 27 U/L Normal 15-37 SGPT/Alt 24 U/L Normal 12-78 Alkaline Phosphatase 107 U/L Normal 45-117 Protime 11/22/2018 [facility] Protime 24.3 seconds High 12.0-14.4 14 [address] [place], [place] [id number] [phone] Inr 2.1 High 0.9-1.1 15 Anticoagulant Therapy? Unknown CBS W/Automated 11/01/2018 [facility] White 5.1 K/uL Normal 3.1-10.7 16 Diff 134 [facility] [place] [place] [address] Count [phone] Red Blood Count 4.27 M/uL Normal 3.90-5.40 Hemoglobin 12.7 gm/dL Normal 11.6-15.8 Hematocrit 40.1 % Normal 36.0-46.1 Mean Cell Volume 93.9 fl Normal 80.9-99.0 Mean Corpuscular HGB 29.7 pg Normal 25.9-32.7 Mean Corpuscular HGB Conc 31.7 g/dL Normal 30.8-34.3 Platelet Count 137 K/uL Low 155-360 Red Cell Distri Width SD 49.7 fl High 36-47 Red Cell Distri Width %CV 14.8 % High 11.7-14.4 Mean Platelet Volume 11.5 fL Normal 8.9-12.4 Neut% 65.5 % Normal 40.4-72.8 Lymph % 24.1 % Normal 20.0-42.0 [place] % 6.7 % Normal 4.3-13.2 Eo% 2.7 % Normal 0.0-6.6 Bas% 1.0 % Normal 0.0-1.1 Neut# 3.35 K/uL Normal 1.8-7.0 Lymph # 1.23 K/uL Normal 1.0-4.0 [place] # 0.34 K/uL Normal 0.3-0.9 Eos # 0.14 K/uL Normal 0.0-0.5 Baso # 0.05 K/uL Normal 0.0-0.1 Comprehensive 11/01/2018 [facility] Glucose 90 mg/dL Normal 74-106 Metabolic Panel [address] [place] [address] [phone] BUN 23 mg/dL High 7-18 Creatinine 1.0 mg/dL Normal 0.6-1.3 Glom Filtration Rate, Estimate 57 mL/min >60 If >60 mL/min >60 17 BUN/Creat 23.0 ratio Sodium 143 mmol/L Normal 136-145 Potassium 4.2 mmol/L Normal 3.5-5.1 Chloride 110 mmol/L High 98-107 Carbon Dioxide 25 mmol/L Normal 21-32 Anion Gap 8 mEq/L Normal 8-16 Calcium 8.7 mg/dL Normal 8.5-10.1 Total Protein 7.0 g/dL Normal 6.4-8.2 Albumin 3.1 g/dL Low 3.4-5.0 Globulin 3.9 g/dL Normal 1.9-4.3 Alb/Glob 0.8 ratio Bilirubin,Total 0.5 mg/dL Normal 0.2-1.0 Sgot/Ast 32 U/L Normal 15-37 SGPT/Alt 30 U/L Normal 12-78 Alkaline Phosphatase 115 U/L Normal 45-117 Protime 10/14/2018 [facility] Protime 23.9 seconds High 12.0-14.4 18 [address] [place], [place] [id number] [phone] Inr 2.1 High 0.9-1.1 19 Anticoagulant Therapy? YES CBS W/Automated 10/04/2018 [facility] White 4.2 K/uL Normal 3.1-10.7 20 Diff 134 [facility] [place] [address] Count [phone] Red Blood Count 4.49 M/uL Normal 3.90-5.40 Hemoglobin 13.1 gm/dL Normal 11.6-15.8 Hematocrit 41.8 % Normal 36.0-46.1 Mean Cell Volume 93.1 fl Normal 80.9-99.0 Mean Corpuscular HGB 29.2 pg Normal 25.9-32.7 Mean Corpuscular HGB Conc 31.3 g/dL Normal 30.8-34.3 Platelet Count 154 K/uL Low 155-360 Red Cell Distri Width SD 51.4 fl High 36-47 Red Cell Distri Width %CV 15.5 % High 11.7-14.4 Mean Platelet Volume 11.4 fL Normal 8.9-12.4 Neut% 67.0 % Normal 40.4-72.8 Lymph % 24.5 % Normal 20.0-42.0 [place] % 5.7 % Normal 4.3-13.2 Eo% 2.1 % Normal 0.0-6.6 Bas% 0.7 % Normal 0.0-1.1 Neut# 2.82 K/uL Normal 1.8-7.0 Lymph # 1.03 K/uL Normal 1.0-4.0 [place] # 0.24 K/uL Low 0.3-0.9 Eos # 0.09 K/uL Normal 0.0-0.5 Baso # 0.03 K/uL Normal 0.0-0.1 Comprehensive 10/04/2018 [facility] Glucose 91 mg/dL Normal 74-106 Metabolic Panel [address] [place], [place] [address] [phone] BUN 20 mg/dL High 7-18 Creatinine 1.1 mg/dL Normal 0.6-1.3 Glom Filtration Rate, Estimate 52 mL/min >60 If >60 mL/min >60 21 BUN/Creat 18.1 ratio Sodium 142 mmol/L Normal 136-145 Potassium 4.4 mmol/L Normal 3.5-5.1 Chloride 110 mmol/L High 98-107 Carbon Dioxide 30 mmol/L Normal 21-32 Anion Gap 2 mEq/L Low 8-16 Calcium 8.5 mg/dL Normal 8.5-10.1 Total Protein 7.8 g/dL Normal 6.4-8.2 Albumin 3.4 g/dL Normal 3.4-5.0 Globulin 4.4 g/dL High 1.9-4.3 Alb/Glob 0.8 ratio Bilirubin,Total 0.5 mg/dL Normal 0.2-1.0 Sgot/Ast 29 U/L Normal 15-37 SGPT/Alt 24 U/L Normal 12-78 Alkaline Phosphatase 120 U/L High 45-117 1 C7A.00 E86.0 Z51.11 2 Note: Persistent reduction for 3 months or more in an eGFR <60 mL/min/1.73 m2 defines CKD. Patients with eGFR values >/=60 mL/min/1.73 m2 may also have CKD if evidence of persistent proteinuria is present. The original MDRD equation for estimated GFR is not valid for patients less than 18 years of age. Additional information may be found at [email or web address]. 3 I82.513 4 THERAPEUTIC INR RANGE: 2.0 - 3.0 DVT, Pulmonary embolus, prophylaxis against venous thrombosis or systemic embolization in high risk patients. 2.5 - 3.5 Mechanical heart valves 5 C7A.00 Z51.11 6 Note: Persistent reduction for 3 months or more in an eGFR <60 mL/min/1.73 m2 defines CKD. Patients with eGFR values >/=60 mL/min/1.73 m2 may also have CKD if evidence of persistent proteinuria is present. The original MDRD equation for estimated GFR is not valid for patients less than 18 years of age. Additional information may be found at [email or web address]. 7 I82.513 8 THERAPEUTIC INR RANGE: 2.0 - 3.0 DVT, Pulmonary embolus, prophylaxis against venous thrombosis or systemic embolization in high risk patients. 2.5 - 3.5 Mechanical heart valves 9 C7A.00 Z51.11 10 Note: Persistent reduction for 3 months or more in an eGFR <60 mL/min/1.73 m2 defines CKD. Patients with eGFR values >/=60 mL/min/1.73 m2 may also have CKD if evidence of persistent proteinuria is present. The original MDRD equation for estimated GFR is not valid for patients less than 18 years of age. Additional information may be found at [email or web address]. 11 Note: Persistent reduction for 3 months or more in an eGFR <60 mL/min/1.73 m2 defines CKD. Patients with eGFR values >/=60 mL/min/1.73 m2 may also have CKD if evidence of persistent proteinuria is present. The original MDRD equation for estimated GFR is not valid for patients less than 18 years of age. Additional information may be found at [email or web address]. 12 THERAPEUTIC INR RANGE: 2.0 - 3.0 DVT, Pulmonary embolus, prophylaxis against venous thrombosis or systemic embolization in high risk patients. 2.5 - 3.5 Mechanical heart valves 13 Note: Persistent reduction for 3 months or more in an eGFR <60 mL/min/1.73 m2 defines CKD. Patients with eGFR values >/=60 mL/min/1.73 m2 may also have CKD if evidence of persistent proteinuria is present. The original MDRD equation for estimated GFR is not valid for patients less than 18 years of age. Additional information may be found at [email or web address]. 14 I82.513 15 THERAPEUTIC INR RANGE: 2.0 - 3.0 DVT, Pulmonary embolus, prophylaxis against venous thrombosis or systemic embolization in high risk patients. 2.5 - 3.5 Mechanical heart valves 16 C7A.00 17 Note: Persistent reduction for 3 months or more in an eGFR <60 mL/min/1.73 m2 defines CKD. Patients with eGFR values >/=60 mL/min/1.73 m2 may also have CKD if evidence of persistent proteinuria is present. The original MDRD equation for estimated GFR is not valid for patients less than 18 years of age. Additional information may be found at [email or web address]. 18 I82.513 19 THERAPEUTIC INR RANGE: 2.0 - 3.0 DVT, Pulmonary embolus, prophylaxis against venous thrombosis or systemic embolization in high risk patients. 2.5 - 3.5 Mechanical heart valves 20 C7A.00 E78.5 I82.513 21 Note: Persistent reduction for 3 months or more in an eGFR <60 mL/min/1.73 m2 defines CKD. Patients with eGFR values >/=60 mL/min/1.73 m2 may also have CKD if evidence of persistent proteinuria is present. The original MDRD equation for estimated GFR is not valid for patients less than 18 years of age. Additional information may be found at [email or web address]. 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, bilateral Office Visit 01/14/2019 1:30p Infusion Center [place], C7A.00 Malignant Snow B., MARKER MACHINE carcinoid tumor of unspecified site Office Visit 12/27/2018 12:45p Oncology Office [place] C7A.00 Malignant DO Valorie carcinoid tumor of unspecified site Z51.11 Encounter for antineoplastic chemotherapy Office Visit 11/29/2018 1:00p Infusion [facility] [place], C7A.00 Malignant Snow B., MARKER MACHINE carcinoid tumor of unspecified site Office Visit 11/01/2018 1:00p Infusion Center [place], C7A.00 Malignant Snow B., MARKER MACHINE carcinoid tumor of unspecified site Office Visit 10/04/2018 1:00p Infusion Center [place], C7A.00 Malignant Snow B., MARKER MACHINE carcinoid tumor of unspecified site Assessments Date Code Description Provider 03/21/2019 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[place], Snow B., MARKER MACHINE site 02/14/2019 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[place], Snow B., MARKER MACHINE site 02/14/2019 E86.0 Dehydration [place], Snow B., MARKER MACHINE 02/07/2019 I10 Essential (primary) hypertension Ivet Cramer MD 02/07/2019 F41.9 Anxiety disorder, unspecified Ivet Cramer MD 02/07/2019 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Ivet Cramer MD site 02/07/2019 I82.513 Chronic embolism and thrombosis of femoral Ivet Cramer MD vein, bilateral 01/14/2019 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[place], Snow B., MARKER MACHINE site 12/27/2018 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Valorie Sood , DO site 12/27/2018 Z51.11 Encounter for antineoplastic chemotherapy Valorie Sood , 11/29/2018 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[place], Snow Acuña, MARKER MACHINE site 11/01/2018 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 Octreotide scan (01/10/2019) showed no significant change from study completed in November 2017.Follow up:RTC in 4 weeks for evaluation for injection. Functional Status Functional Condition Comment Date Status Glasses Active Independent with all ADL's Active Partial upper dentures Active Standard cane is used with the right hand to ambulate Active Mental Status Description No Information Available Referrals Description No Information Available
--- OUTSIDE RECORDS SUMMARY | 2019-05-07 14:09 | XMS REPORT | Continuity of Care Document ---
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 Onset: 03/26/2016 Aneurysm of thoracic aorta Charlene Guevara M.D. 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 Onset: 10/28/2016 Encounter for antineoplastic chemotherapy Valorie Sood DO Onset: 2018 Social History Type Date Description Comments Sex Unknown Tobacco Use Start: Unknown Never Smoked Cigarettes Smoking Status Reviewed: 04/01/19 Never Smoked Cigarettes ETOH Use Rarely consumes [...] day as needed MD Tablets Reference #: [id number] Sandostatin Lar 30mg Im monthly Unknown Depot injections 30mg Kit Immunizations CPT Code Status Date Vaccine Reaction Lot # [id number] Given 07/29/2018 Influenza High Dose [id number] 69546 Given 04/23/2017 Influenza Virus Vaccine Quadrivalent Iiv4 Split Preser Free Id Q2038 Given 07/29/2016 Influenza Vaccine (Fluzone) Age 3 And Older Q2038 Given 07/29/2016 Influenza Vaccine (Fluzone) Age 3 And [id number] Older Q2038 Given 06/11/2015 Influenza Vaccine (Fluzone) Age 3 And [id number] Older 72502 Given 06/11/2015 Pneumococcal Conjugate Vaccine 13 Valent [id number] For Intramuscular Use 66045 Given 05/05/2014 flu vaccination 32023 Given 04/12/2013 flu vaccination 64959 Given 05/14/2012 flu vaccination AT [facility] 53324 Given 06/04/2011 flu vaccination 40747 Given 05/29/2010 Pneumovax Injection 53606 Given 04/09/2009 flu vaccination Vital Signs Date Vital Result Comment 04/25/2019 11:55am BP Systolic 152 mmHg right BP Diastolic 92 mmHg right Body Temperature 98.4 F Heart Rate 93 /min Respiratory Rate 18 /min Weight 210.00 lb O2 % BldC Oximetry 99 % ra Pain Level 0 04/01/2019 1:21pm BP Systolic 104 mmHg BP Diastolic 72 mmHg Body Temperature 98.4 F Heart Rate 79 /min Respiratory Rate 18 /min Height 64 inches 5'4" Weight 207.50 lb BMI (Body Mass Index) 35.6 kg/m2 BSA (Body Surface Area) 1.99 m2 [place] body weight in kilograms 54 kg O2 % BldC Oximetry 98 % Results Test Date Facility Test Result H/L Range Note CBS 04/25/2019 [facility] White Blood 4.2 K/uL Normal 3.1-10.7 1 W/Automated [address] [place] [address] [phone] Red Blood Count 4.17 M/uL Normal 3.90-5.40 Hemoglobin 12.8 gm/dL Normal 11.6-15.8 Hematocrit 39.5 % Normal 36.0-46.1 Mean Cell Volume 94.7 fl Normal 80.9-99.0 Mean Corpuscular HGB 30.7 pg Normal 25.9-32.7 Mean Corpuscular HGB Conc 32.4 g/dL Normal 30.8-34.3 Platelet Count 114 K/uL Low 155-360 Red Cell Distri Width SD 52.2 fl High 36-47 Red Cell Distri Width %CV 15.1 % High 11.7-14.4 Mean Platelet Volume 11.4 fl Normal 8.9-12.4 Neut% 67.2 % Normal 40.4-72.8 Lymph % 20.8 % Normal 20.0-42.0 Floyd % 8.3 % Normal 4.3-13.2 Eo% 2.8 % Normal 0.0-6.6 Bas% 0.7 % Normal 0.0-1.1 Immature Grans 0.2 % Normal 0.0-5.0 NRBC % 0.0 /100WBC < 10/ 100 WBC Neut# 2.84 K/uL Normal 1.8-7.0 Lymph # 0.88 K/uL Low 1.0-4.0 Floyd # 0.35 K/uL Normal 0.3-0.9 Eos # 0.12 K/uL Normal 0.0-0.5 Baso # 0.03 K/uL Normal 0.0-0.1 Immature Grans Absolute 0.01 K/uL NRBC # 0.00 K/uL Comprehensive 04/25/2019 [facility] Glucose 100 mg/dL Normal 74-106 Metabolic Panel [address] [place] [address] [phone] BUN 22 mg/dL High 7-18 Creatinine 1.1 mg/dL Normal 0.6-1.3 Glom Filtration Rate, Estimate 51 mL/min >60 If >60 mL/min >60 2 BUN/Creat 20.0 ratio Sodium 146 mmol/L High 136-145 Potassium 4.3 mmol/L Normal 3.5-5.1 Chloride 113 mmol/L High 98-107 Carbon Dioxide 26 mmol/L Normal 21-32 Anion Gap 7 mEq/L Low 8-16 Calcium 8.5 mg/dL Normal 8.5-10.1 Total Protein 7.3 g/dL Normal 6.4-8.2 Albumin 3.1 g/dL Low 3.4-5.0 Globulin 4.2 g/dL Normal 1.9-4.3 Alb/Glob 0.7 ratio Bilirubin,Total 0.3 mg/dL Normal 0.2-1.0 Sgot/Ast 24 U/L Normal 15-37 SGPT/Alt 20 U/L Normal 12-78 Alkaline Phosphatase 127 U/L High 45-117 CBC W/Automated 04/01/2019 [facility] White Blood 5.1 K/uL Normal 3.1-10.[address] [place] [address] [phone] Red Blood Count 4.52 M/uL Normal 3.90-5.40 Hemoglobin 13.3 gm/dL Normal 11.6-15.8 Hematocrit 41.6 % Normal 36.0-46.1 Mean Cell Volume 92.0 fl Normal 80.9-99.0 Mean Corpuscular HGB 29.4 pg Normal 25.9-32.7 Mean Corpuscular HGB Conc 32.0 g/dL Normal 30.8-34.3 Platelet Count 145 K/uL Low 155-360 Red Cell Distri Width SD 50.0 fl High 36-47 Red Cell Distri Width %CV 14.7 % High 11.7-14.4 Mean Platelet Volume 11.9 fl Normal 8.9-12.4 Neut% 61.5 % Normal 40.4-72.8 Lymph % 24.9 % Normal 20.0-42.0 Floyd % 9.3 % Normal 4.3-13.2 Eo% 3.1 % Normal 0.0-6.6 Bas% 0.8 % Normal 0.0-1.1 Immature Grans 0.4 % Normal 0.0-5.0 NRBC % 0.0 /100WBC < 10/ 100 WBC Neut# 3.16 K/uL Normal 1.8-7.0 Lymph # 1.28 K/uL Normal 1.0-4.0 Floyd # 0.48 K/uL Normal 0.3-0.9 Eos # 0.16 K/uL Normal 0.0-0.5 Baso # 0.04 K/uL Normal 0.0-0.1 Immature Grans Absolute 0.02 K/uL NRBC # 0.00 K/uL Comprehensive 04/01/[address] [facility] [address] Glucose 82 mg/dL Normal 74-106 Metabolic Panel [address] [place] [address] [phone] BUN 29 mg/dL High 7-18 Creatinine 1.2 mg/dL Normal 0.6-1.3 Glom Filtration Rate, Estimate 47 mL/min >60 If 56 mL/min >60 4 BUN/Creat 24.1 ratio Sodium 141 mmol/L Normal 136-145 Potassium 4.4 mmol/L Normal 3.5-5.1 Chloride 109 mmol/L High 98-107 Carbon Dioxide 25 mmol/L Normal 21-32 Anion Gap 7 mEq/L Low 8-16 Calcium 8.7 mg/dL Normal 8.5-10.1 Total Protein 7.7 g/dL Normal 6.4-8.2 Albumin 3.1 g/dL Low 3.4-5.0 Globulin 4.6 g/dL High 1.9-4.3 Alb/Glob 0.7 ratio Bilirubin,Total 0.4 mg/dL Normal 0.2-1.0 Sgot/Ast 40 U/L High 15-37 SGPT/Alt 38 U/L Normal 12-78 Alkaline Phosphatase 130 U/L High 45-117 Protime 03/28/2019 [facility] Protime 27.2 seconds High 12.0-14.[address] [place] [address] [phone] Inr 2.5 High 0.9-1.1 5 Anticoagulant Therapy? YES Date of Last Dose: 03/27/19 Time of Last Dose: 1130PM CBS W/Automated 03/21/2019 [facility] White Blood 5.0 K/uL Normal 3.1-10.7 [address] [place] [address] [phone] Red Blood Count 4.58 M/uL Normal 3.90-5.40 [...] 40.4-72.8 Lymph % 25.3 % Normal 20.0-42.0 Floyd % 8.8 % Normal 4.3-13.2 Eo% 1.8 % Normal 0.0-6.6 Bas% 0.8 % Normal 0.0-1.1 Immature Grans 0.2 % Normal 0.0-5.0 NRBC % 0.0 /100WBC < 10/ 100 WBC Neut# 3.14 K/uL Normal 1.8-7.0 Lymph # 1.26 K/uL Normal 1.0-4.0 Floyd # 0.44 K/uL Normal 0.3-0.9 Eos # 0.09 K/uL Normal 0.0-0.5 Baso # 0.04 K/uL Normal 0.0-0.1 Immature Grans Absolute 0.01 K/uL NRBC # 0.00 K/uL Comprehensive 03/21/2019 [facility] Glucose 86 mg/dL Normal 74-106 Metabolic Panel [address] [place] [address] [phone] BUN 27 mg/dL High 7-18 Creatinine 1.1 mg/dL Normal 0.6-1.3 Glom Filtration Rate, Estimate 51 mL/min >60 If >60 mL/min >60 7 BUN/Creat 24.5 ratio Sodium 141 mmol/L Normal [...] Phosphatase 94 U/L Normal 45-117 Protime 02/24/2019 [facility] Protime 21.6 seconds High 12.0-14.4 8 [address] [place] [address] [phone] Inr 1.9 High 0.9-1.1 9 Anticoagulant Therapy? YES Date of Last Dose: 02/23/19 Time of Last Dose: 1030PM CBS W/Automated 02/14/2019 [facility] White 5.8 K/uL Normal 3.1-10.7 10 Diff [address] [facility] [place] [address] Count [phone] Red Blood Count 4.62 M/uL Normal 3.90-5.40 [...] 40.4-72.8 Lymph % 24.1 % Normal 20.0-42.0 Floyd % 8.8 % Normal 4.3-13.2 Eo% 2.1 % Normal 0.0-6.6 Bas% 0.5 % Normal 0.0-1.1 Immature Grans 0.2 % Normal 0.0-5.0 NRBC % 0.0 /100WBC < 10/ 100 WBC Neut# 3.74 K/uL Normal 1.8-7.0 Lymph # 1.40 K/uL Normal 1.0-4.0 Floyd # 0.51 K/uL Normal 0.3-0.9 Eos # 0.12 K/uL Normal 0.0-0.5 Baso # 0.03 K/uL Normal 0.0-0.1 Immature Grans Absolute 0.01 K/uL NRBC # 0.00 K/uL Comprehensive 02/14/2019 [facility] Glucose 91 mg/dL Normal 74-106 Metabolic Panel [address] [place], [place] [address] [phone] BUN 31 mg/dL High 7-18 Creatinine 1.4 mg/dL High 0.6-1.3 Glom Filtration Rate, Estimate 39 mL/min >60 If 47 mL/min >60 11 BUN/Creat 22.1 ratio Sodium 142 mmol/L Normal [...] 102 U/L Normal 45-117 Urine Dipstick 02/07/2019 [facility] Ua Color <pending> Yellow Ua Clarity <pending> Clear Ua Leuko 2+ High Negative Ua Nitrite positive Negative Ua Urobilinogen - Low 0.2 - 1.0 E.U./dL Ua Protein trace Negative Ua PH 5.5 Low 6.5-7.5 Ua Blood - Negative Ua Specific [place] 1.030 1.010-1.030 Ua Ketones trace Negative Ua Bilirubin 1+ High Negative Ua Glucose - Negative Protime 01/21/2019 [facility] Protime 22.2 seconds High 12.0-14.4 12 [address] [place] [address] [phone] Inr 1.9 High 0.9-1.1 13 Anticoagulant Therapy? YES Date of Last Dose: 01/20/19 Time of Last Dose: 2229 Comprehensive Metabolic 01/14/2019 [facility] Glucose 73 mg/dL Low 74-106 14 Panel [address] [place] [address] [phone] BUN 26 mg/dL High 7-18 Creatinine 1.1 mg/dL Normal 0.6-1.3 Glom Filtration Rate, Estimate 51 mL/min >60 If >60 mL/min >60 15 BUN/Creat 23.6 ratio Sodium 141 mmol/L Normal [...] 12-78 Alkaline Phosphatase 116 U/L Normal 45-117 CBS W/Automated 01/14/2019 [facility] White Blood 5.8 K/uL Normal 3.1-10.[address] [place] [address] [phone] Red Blood Count 4.63 M/uL Normal 3.90-5.40 [...] 40.4-72.8 Lymph % 25.8 % Normal 20.0-42.0 Floyd % 9.5 % Normal 4.3-13.2 Eo% 2.9 % Normal 0.0-6.6 Bas% 0.9 % Normal 0.0-1.1 Immature Grans 0.2 % Normal 0.0-5.0 NRBC % 0.0 /100WBC < 10/ 100 WBC Neut# 3.53 K/uL Normal 1.8-7.0 Lymph # 1.50 K/uL Normal 1.0-4.0 Floyd # 0.55 K/uL Normal 0.3-0.9 Eos # 0.17 K/uL Normal 0.0-0.5 Baso # 0.05 K/uL Normal 0.0-0.1 Immature Grans Absolute 0.01 K/uL NRBC # 0.00 K/uL Xray 01/12/2019 [facility] - Radiology Octreotide Scan <pending> [address] [place] [address] [phone] Protime 12/27/2018 [facility] Protime 16.4 seconds High 12.0-14.[address] [place] [address] [phone] Inr 1.3 High 0.9-1.1 16 Anticoagulant Therapy? Unknown CBC W/Automated 12/27/2018 [facility] White Blood 5.5 K/uL Normal 3.1-10.[address] [place] [address] [phone] Red Blood Count 4.45 M/uL Normal 3.90-5.40 [...] 40.4-72.8 Lymph % 27.3 % Normal 20.0-42.0 Floyd % 8.0 % Normal 4.3-13.2 Eo% 2.2 % Normal 0.0-6.6 Bas% 0.7 % Normal 0.0-1.1 Immature Grans 0.4 % Normal 0.0-5.0 NRBC % 0.0 /100WBC < 10/ 100 WBC Neut# 3.38 K/uL Normal 1.8-7.0 Lymph # 1.50 K/uL Normal 1.0-4.0 Floyd # 0.44 K/uL Normal 0.3-0.9 Eos # 0.12 K/uL Normal 0.0-0.5 Baso # 0.04 K/uL Normal 0.0-0.1 Immature Grans Absolute 0.02 K/uL NRBC # 0.00 K/uL Comprehensive 12/27/2018 [facility] Glucose 81 mg/dL Normal 74-106 Metabolic Panel [address] [place] [address] [phone] BUN 27 mg/dL High 7-18 Creatinine 1.0 mg/dL Normal 0.6-1.3 Glom Filtration Rate, Estimate 57 mL/min >60 If >60 mL/min >60 17 BUN/Creat 27.0 ratio Sodium 141 mmol/L Normal [...] 12-78 Alkaline Phosphatase 108 U/L Normal 45-117 CBS W/Automated 11/29/2018 [facility] White Blood 5.7 K/uL Normal 3.1-10.[address] [place] [address] [phone] Red Blood Count 4.48 M/uL Normal 3.90-5.40 [...] 40.4-72.8 Lymph % 20.7 % Normal 20.0-42.0 Floyd % 8.0 % Normal 4.3-13.2 Eo% 2.7 % Normal 0.0-6.6 Bas% 1.2 % High 0.0-1.1 Immature Grans 0.2 % Normal 0.0-5.0 NRBC % 0.0 /100WBC < 10/ 100 WBC Neut# 3.81 K/uL Normal 1.8-7.0 Lymph # 1.17 K/uL Normal 1.0-4.0 Floyd # 0.45 K/uL Normal 0.3-0.9 Eos # 0.15 K/uL Normal 0.0-0.5 Baso # 0.07 K/uL Normal 0.0-0.1 Immature Grans Absolute 0.01 K/uL NRBC # 0.00 K/uL Comprehensive 11/29/2018 [facility] Glucose 78 mg/dL Normal 74-106 Metabolic Panel [address] [place], [place] [id number] [phone] BUN 21 mg/dL High 7-18 Creatinine 0.9 mg/dL Normal 0.6-1.3 Glom Filtration Rate, Estimate >60 mL/min >60 If >60 mL/min >60 18 BUN/Creat 23.3 ratio Sodium 140 mmol/L Normal [...] Phosphatase 107 U/L Normal 45-117 Protime 11/22/2018 [facility] Protime 24.3 seconds High 12.0-14.4 19 [address] [place], [place] [address] [phone] Inr 2.1 High 0.9-1.1 20 Anticoagulant Therapy? Unknown CBS W/Automated 11/01/2018 [facility] White 5.1 K/uL Normal 3.1-10.7 21 Diff [address] [place] [address] Count [phone] Red Blood Count 4.27 M/uL Normal 3.90-5.40 [...] 40.4-72.8 Lymph % 24.1 % Normal 20.0-42.0 Floyd % 6.7 % Normal 4.3-13.2 Eo% 2.7 % Normal 0.0-6.6 Bas% 1.0 % Normal 0.0-1.1 Neut# 3.35 K/uL Normal 1.8-7.0 Lymph # 1.23 K/uL Normal 1.0-4.0 Floyd # 0.34 K/uL Normal 0.3-0.9 Eos # 0.14 K/uL Normal 0.0-0.5 Baso # 0.05 K/uL Normal 0.0-0.1 Comprehensive 11/01/2018 [facility] Glucose 90 mg/dL Normal 74-106 Metabolic Panel [address] [place] [address] [phone] BUN 23 mg/dL High 7-18 Creatinine 1.0 mg/dL Normal 0.6-1.3 Glom Filtration Rate, Estimate 57 mL/min >60 If >60 mL/min >60 22 BUN/Creat 23.0 ratio Sodium 143 mmol/L Normal [...] 12-78 Alkaline Phosphatase 115 U/L Normal 45-117 1 C7A.00 E86.0 Z51.11 2 Note: [...] information may be found at [email or web address]. 3 Z79.01 4 Note: Persistent reduction for 3 months or more in an eGFR <60 mL/min/1.73 m2 defines CKD. Patients with eGFR values >/=60 mL/min/1.73 m2 may also have CKD if evidence of persistent proteinuria is present. The original MDRD equation for estimated GFR is not valid for patients less than 18 years of age. Additional information may be found at [email or web address]. 5 THERAPEUTIC INR RANGE: 2.0 - 3.0 DVT, Pulmonary embolus, prophylaxis against venous thrombosis or systemic embolization in high risk patients. 2.5 - 3.5 Mechanical heart valves 6 C7A.00 E86.0 Z51.11 7 Note: Persistent reduction for 3 months or more in an eGFR <60 mL/min/1.73 m2 defines CKD. Patients with eGFR values >/=60 mL/min/1.73 m2 may also have CKD if evidence of persistent proteinuria is present. The original MDRD equation for estimated GFR is not valid for patients less than 18 years of age. Additional information may be found at [email or web address]. 8 I82.513 9 THERAPEUTIC INR RANGE: 2.0 - 3.0 DVT, Pulmonary embolus, prophylaxis against venous thrombosis or systemic embolization in high risk patients. 2.5 - 3.5 Mechanical heart valves 10 C7A.00 Z51.11 11 Note: Persistent reduction for 3 months or more in an eGFR <60 mL/min/1.73 m2 defines CKD. Patients with eGFR values >/=60 mL/min/1.73 m2 may also have CKD if evidence of persistent proteinuria is present. The original MDRD equation for estimated GFR is not valid for patients less than 18 years of age. Additional information may be found at [email or web address]. 12 I82.513 13 THERAPEUTIC INR RANGE: 2.0 - 3.0 DVT, Pulmonary embolus, prophylaxis against venous thrombosis or systemic embolization in high risk patients. 2.5 - 3.5 Mechanical heart valves 14 C7A.00 Z51.11 15 Note: Persistent reduction for 3 months or more in an eGFR <60 mL/min/1.73 m2 defines CKD. Patients with eGFR values >/=60 mL/min/1.73 m2 may also have CKD if evidence of persistent proteinuria is present. The original MDRD equation for estimated GFR is not valid for patients less than 18 years of age. Additional information may be found at [email or web address]. 16 THERAPEUTIC INR RANGE: 2.0 - 3.0 DVT, Pulmonary embolus, prophylaxis against venous thrombosis or systemic embolization in high risk patients. 2.5 - 3.5 Mechanical heart valves 17 Note: Persistent reduction for 3 months or more in an eGFR <60 mL/min/1.73 m2 defines CKD. Patients with eGFR values >/=60 mL/min/1.73 m2 may also have CKD if evidence of persistent proteinuria is present. The original MDRD equation for estimated GFR is not valid for patients less than 18 years of age. Additional information may be found at [email or web address]. 18 Note: Persistent reduction for 3 months or more in an eGFR <60 mL/min/1.73 m2 defines CKD. Patients with eGFR values >/=60 mL/min/1.73 m2 may also have CKD if evidence of persistent proteinuria is present. The original MDRD equation for estimated GFR is not valid for patients less than 18 years of age. Additional information may be found at [email or web address]. 19 I82.513 20 THERAPEUTIC INR RANGE: 2.0 - 3.0 DVT, Pulmonary embolus, prophylaxis against venous thrombosis or systemic embolization in high risk patients. 2.5 - 3.5 Mechanical heart valves 21 C7A.00 22 Note: Persistent reduction for 3 months or [...] [email or web address]. Procedures Date Code Description Status 08/20/2017 [id number] Mammogram Completed 08/18/2016 [id number] Bone Mineral Density Test Completed 02/19/2012 [id number] Colonoscopy Completed Medical Devices Description No Information Available Encounters Type Date Location Provider Dx Diagnosis Office Visit 04/01/2019 Family Medicine Alena Friend, JAYLON R53.83 Other fatigue 1:[address]p [address] R06.02 Shortness of breath Office Visit 03/21/2019 1:00p [facility]fusion [facility] [place], C7A.00 Malignant Snow B., [employer] carcinoid tumor of unspecified site Office Visit 02/14/2019 1:30p Infusion [facility] [place], C7A.00 Malignant Snow B., [employer] carcinoid tumor of unspecified site E86.0 Dehydration Office Visit 02/07/2019 2:15p Family Medicine Ivet Cramer, I10 Essential (primary) Coy ZEE MD hypertension F41.9 Anxiety disorder, unspecified 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, bilateral Office Visit 01/14/2019 1:30p [facility] [place], C7A.00 Malignant Snow B., [employer] carcinoid tumor of unspecified site Office Visit 12/27/2018 12:45p Oncology Office [place] C7A.00 Malignant DO Valorie carcinoid tumor of unspecified site Z51.11 Encounter for antineoplastic chemotherapy Office Visit 11/29/2018 1:00p [facility] [place], C7A.00 Malignant Snow B., [employer] carcinoid tumor of unspecified site Office Visit 11/01/2018 1:00p [facility] [place], C7A.00 Malignant Snow B., [employer] carcinoid tumor of unspecified site Assessments Date Code Description Provider 04/25/2019 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[place], Snow B., [employer] site 04/01/2019 R53.83 Other fatigue Alena Friend FNP 04/01/2019 R06.02 Shortness of breath Alena Friend FNP 03/21/2019 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[place], Snow B., [employer] site 02/14/2019 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[place], Snow B., [employer] SU[employer] site 02/14/2019 E86.0 Dehydration Snow Galo., [employer] 02/07/2019 I10 Essential (primary) hypertension Ivet Cramer MD 02/07/2019 F41.9 Anxiety disorder, unspecified Ivet Cramer MD 02/07/2019 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Ivet Cramer MD site 02/07/2019 I82.513 Chronic embolism and thrombosis of femoral Ivet Cramer MD vein, bilateral 01/14/2019 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Snow Galo, [employer] site 12/27/2018 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Valorie Sodo , DO site 12/27/2018 Z51.11 Encounter for antineoplastic chemotherapy Valorie Sood , 11/29/2018 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Snow Galo, [employer] site 11/01/2018 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Snow Galo, [employer] SUPERVISOR site Plan of Treatment Future Appointment(s):05/23/2019 11:30 am - Infusion Chair 7 at Infusion Pabdlc4805/23/2019 12:00 pm - Snow Galo, ANTIONETTE at Infusion Yevgra2208/12/2019 1:00 pm - Ivet Cramer MD at [facility]08/24/2019 1:00 pm - Flaco Pavon MD at Cardiology Bklrrw2404/01/2019 - Alena Friend, FNPR53.83 Other fatigueComments:Please drink more water!! I think your symptoms have to do with dehydration and your skin and mouth are very dry on today's exam, plus your blood pressure is pretty low.You aren't drinking much water since being off for summer so I need you to get back into the habit of drinking water all day long. Fruits and vegetables are also high in water content.Let's shoot for a goal of 60 ounces to start. Eight ounces first thing in the AM. At least 4 ounces with each meal, and 8 ounces between meals!Checkingsome labs today to make sure it's nothing more serious.Please call me early next week if you have noimprovement in your symptoms.R06.02 Shortness of breath Functional Status Functional Condition Comment Date Status Glasses Active Independent with all ADL's Active Partial upper dentures Active Standard cane is used with the right hand to ambulate Active Mental Status Description No Information Available Referrals Description No Information Available
[2019-05-07] MEDS ORDERED: predniSONE TAB* 20 MG PO ONE (14:39)
[2019-05-07] MEDS ORDERED: Albuterol/Ipratropium NEB.SOL* Albuterol 2.5 MG/Ipratropium 0.5 MG 3 ML INH ONE ×2 (14:39→15:09)
--- NOTE | 2019-05-07 15:39 | UC ---
Respiratory Complaint HPI - HPI Summary HPI Summary: 73-year-old female presents with general malaise, fatigue, nasal congestion, runny nose, sinus pressure, mild sore throat, productive cough for green sputum , shortness of breath, and wheezing. States symptoms started 3 days ago with just the nasal congestion and runny nose. Next day started with the sinus pressure, productive cough, and shortness of breath which has progressively worsened over the last 2 days. States she has been taking Mucinex with no relief in her symptoms. Denies fever, chills, ear pain, dysphagia, chest pain, palpitations, weakness, dizziness, abdominal pain, nausea, or vomiting. - History of Current Complaint Chief Complaint: UCRespiratory Stated Complaint: CHEST CONGESTION Time Seen by Provider: 05/07/19 14:34 Hx Obtained From: Patient Pain Intensity: 2 - Allergies/Home Medications Allergies/Adverse Reactions: Allergies Allergy/AdvReac Type Severity Reaction Status Date / Time No Known Allergies Allergy Verified 05/07/19 14:14 Home Medications: Home Medications Glucosamine/D3/Boswellia Aaliyah [Osteo Bi-Flex Tablet] 1 each PO DAILY 05/07/19 [ History Confirmed 05/07/19] Octreotide Acetate [Sandostatin] mcg IM Q30D 05/07/19 [History] Olmesartan/Hydrochlorothiazide [Olmesartan Medoxomil/Hydr 20-12.5 mg] tab PO DAILY 05/07/19 [History] Potassium Chlor TAB (NF) [Kaon-Cl-10 TAB (NF)] 5 meq PO DAILY 05/07/19 [History Confirmed 05/07/19] Simvastatin TAB(NF) [Zocor(NF)] 20 mg PO DAILY 05/07/19 [History Confirmed 05/07] Vitamin THERAPEUTIC TAB* [Theragran TAB*] 1 tab PO DAILY 05/07/19 [History Confirmed 05/07/19] Warfarin TAB(*) [Coumadin TAB(*)] 4 mg PO DAILY 05/07/19 [History Confirmed ] celeCOXIB CAP* [CeleBREX CAP*] 200 mg PO DAILY 05/07/19 [History Confirmed 05/07] PMH/Surg Hx/FS Hx/Imm Hx - Additional Past Medical History Additional PMH: Osteoporosis Endocrine History: Dyslipidemia Cardiovascular History: Hypertension, Deep Vein Thrombosis, Bleeding Disorders - Thrombocytopenia GI/ History: Gastroesophageal Reflux, Other - Hiatal hernia Psychological History: Anxiety - Surgical History Surgical History: Yes Surgery Procedure, Year, and Place: LAPAROSCOPIC GALL [id number] [place]. TUBAL LIGATION 1969 [place]. APPENDECTOMY 1969 [place]. TONSILLECTOMY 1972 [place]. BILAT LEG SAPHNEOUS VEIN LIGATION 1976 [place]. CATARACT REMOVAL BILAT [id number] [place] - Family History Known Family History: Positive: Non-Contributory - Social History Occupation: Retired Lives: With Family Alcohol Use: Occasionally Alcohol Amount: 3 BEERS WEEKLY Substance Use Type: None Smoking Status (MU): Never Smoked Tobacco - Immunization History Most Recent Influenza Vaccination: 2016 Most Recent Pneumonia Vaccination: 2016 Review of Systems All Other Systems Reviewed And Are Negative: Yes Constitutional: Positive: Fatigue. Negative: Fever, Chills Eyes: Negative: Drainage, Eye Redness ENT: Positive: Sore Throat, Nasal Discharge, Sinus Congestion, Sinus Pain/ Tenderness. Negative: Ear Ache Respiratory: Positive: Shortness Of Breath, Cough, Other - Wheezing Cardiovascular: Negative: Palpitations, Chest Pain Gastrointestinal: Negative: Abdominal Pain, Vomiting, Nausea Genitourinary: Positive: Negative Musculoskeletal: Positive: Negative Neurological: Positive: Negative Is Patient Immunocompromised?: No Physical Exam - Summary Physical Exam Summary: GENERAL APPEARANCE: Alert and cooperative older adult female who is mildly tachypnic but appears to be in no acute respiratory distress. EYES: Conjunctiva clear. No drainage. EARS: External auditory canals and tympanic membranes clear, hearing grossly intact. NOSE: Moderate nasal congestion. Clear nasal discharge. THROAT: Pharyngeal cobblestoning. Tonsils surgically absent. Uvula midline. NECK: Neck supple, non-tender without lymphadenopathy. CARDIAC: Normal S1 and S2. No S3, S4 or murmurs. Rhythm is regular. There is no peripheral edema, cyanosis or pallor. Extremities are warm and well perfused. Capillary refill is less than 2 seconds. Peripheral pulses intact. LUNGS: Diffuse wheezing throughout all lung gagnon. No rales or rhonchi noted. Harsh, loose, bronchospastic cough. ABDOMEN: Positive bowel sounds. Soft, nondistended, nontender. No guarding or rebound. No masses or hepatosplenomegally. MUSKULOSKELETAL: ROM intact to all extremities. No joint erythema or tenderness. Normal muscular development. Normal gait. SKIN: Skin normal color, texture and turgor with no lesions or eruptions. Triage Information Reviewed: Yes Vital Signs: Initial Vital Signs Temp 98.6 F 05/07/19 14:12 Pulse 99 05/07/19 14:12 Resp 30 05/07/19 14:12 BP 101/65 05/07/19 14:12 Pulse Ox 99 05/07/19 14:12 Vital Signs Reviewed: Yes Diagnostics - Radiology No standard instances Radiology Interpretation Completed By: Radiologist Summary of Radiographic Findings: Order Information: CHEST PA LAT 2 VWS. HISTORY: cough, SOB, wheezing. COMPARISONS: March 02, 2017. VIEWS: 4: Frontal dual-energy and lateral views of the chest. FINDINGS: CARDIOMEDIASTINAL SILHOUETTE: The cardiomediastinal silhouette is normal. NAN: The nan are normal. PLEURA: The costophrenic angles are sharp. No pleural abnormalities are noted. LUNG PARENCHYMA: The lungs are clear. ABDOMEN: There is a large paraesophageal hiatal hernia. BONES AND SOFT TISSUES: No bone or soft tissue abnormalities are noted. OTHER: None. IMPRESSION: HIATAL HERNIA. NO ACTIVE CARDIOPULMONARY DISEASE. Respiratory Course/Dx - Course Course Of Treatment: 73-year-old female presents with general malaise, fatigue, nasal congestion, runny nose, sinus pressure, mild sore throat, productive cough for green sputum , shortness of breath, and wheezing. States symptoms started 3 days ago with just the nasal congestion and runny nose. Next day started with the sinus pressure, productive cough, and shortness of breath which has progressively worsened over the last 2 days. States she has been taking Mucinex with no relief in her symptoms. Denies fever, chills, ear pain, dysphagia, chest pain, palpitations, weakness, dizziness, abdominal pain, nausea, or vomiting. Afebrile. Vital signs stable. Patient was mildly tachypnic with moderate nasal congestion, clear nasal discharge, pharyngeal erythema, surgically absent tonsils, no cervical lymphadenopathy, diffuse bilateral wheezes throughout all lung gagnon, no rales or rhonchi noted, a harsh, loose bronchospastic cough, otherwise unremarkable exam. Chest x-ray showed a large hiatal hernia but no acute cardiopulmonary pathology. Patient received prednisone 60 mg PO and DuoNeb treatments 2 during the course of her visit. Patient remained mildly to With diffuse wheezes bilaterally but stated she did feel that she was breathing more easily. Nursing performed a ambulatory pulse ox and the patient was able to maintain her oxygen level at 99-100% although she did become tachycardic into the 120s and complained of some shortness of breath. I discussed with the patient my concerns that her wheezing had not improved more and that she became tachycardic and short of breath with ambulation and offered further evaluation in the emergency room at this time however the patient declines stating she does not feel that she is at sick. I do feel that it is reasonable for her to be discharged home at this time however discussed with the patient that she should have a very low threshold for evaluation in the ER if she should have any worsening of symptoms. We discussed that her symptoms were likely viral however considering the severity of her symptoms I will plan on starting her on an antibiotic to treat the upper respiratory infection. She is to start doxycycline 100 mg twice a day 7 days. I have given her a prescription for prednisone 50 mg daily 4 days starting tomorrow. I will also given her a prescription for an albuterol inhaler 2 puffs every 4-6 hours as needed for shortness of breath, wheezing, or coughing fits. She is to follow- up with her primary care provider within 3 days for recheck of symptoms. Anticipatory guidance and warning symptoms requiring immediate evaluation in the emergency room were reviewed with the patient. Verbalizes understanding and agrees with plan of care. - Differential Dx/Diagnosis Differential Diagnosis/HQI/PQRI: Bronchitis, Lower Resp Infection, Sinusitis, Other - RAD Provider Diagnosis: URI (upper respiratory infection), Reactive airway disease Discharge ED - Sign-Out/Discharge Documenting (check all that apply): Patient Departure All imaging exams completed and their final reports reviewed: Yes - Discharge Plan Condition: Stable Disposition: HOME Prescriptions: Albuterol HFA INHALER* [Ventolin HFA Inhaler*] 2 puff INH Q4H PRN #1 mdi PRN Reason: Sob/Wheezing Doxycycline Hyclate 100 mg PO BID #14 tablet predniSONE TAB* [Deltasone TAB*] 50 mg PO DAILY #4 tab Patient Education Materials: Upper Respiratory Infection (ED), Wheezing (ED) Forms: *Work Release Referrals: Charlene Guevara MD [Primary Care Provider] - 3 Days Additional Instructions: Your history and exam are consistent with an upper respiratory infection with reactive airway disease. The chest x-ray performed in the clinic today showed no evidence of pneumonia. Start doxycycline 100 mg twice a day for 7 days. Starting tomorrow take prednisone 50 mg 1 tab daily for 4 days. We gave you a dose in the clinic for today. Use the albuterol inhaler 2 puffs every 4-6 hours as needed for shortness of breath, wheezing, or coughing fits. Drink plenty of fluids to avoid dehydration especially if you are running any fever. Take over the counter acetaminophen (Tylenol) according to directions as needed for pain or fever. Follow up with your primary care provider in 3 days for a recheck of your symptoms. Seek immediate medical attention in the emergency room if you have fever greater than 100.5 F despite taking acetaminophen or ibuprofen, have chest pain , increased difficulty breathing, or have any worsening of symptoms. - Billing Disposition and Condition Condition: STABLE Disposition: Home
[2019-05-07 15:41] VITALS: BP 97/57
== END 2019-05-07 16:19 | disposition home or self-care (01) ==
LOC: UCCORT 13:35
DX: J06.9 Acute upper respiratory infection, unspecified (principal); I82.409 Acute embolism and thrombosis of unspecified deep veins of unspecified lower extremity; Z79.01 Long term (current) use of anticoagulants; I10 Essential (primary) hypertension; E78.5 Hyperlipidemia, unspecified; M81.0 Age-related osteoporosis without current pathological fracture
CPT/HCPCS: 71046; 99213; A9270-GY; G0463; J7512